=== PATIENT | female | born 1945 | race Caucasian/White ===

== ENCOUNTER 2017-04-19 20:38 | Emergency (ER) | payer MEDICARE, BC ==
[~2017-04-19] VITALS: Ht 157.5 cm; Wt 58.2 kg
[2017-04-19] MEDS ORDERED: famotidine 20mg tablet PO ONE (22:15)
[2017-04-19] MEDS ORDERED: LORazepam 2 mg/ml vial IM ONE (22:20)
[2017-04-19] MEDS ORDERED: diphenhydrAMINE 25mg capsule PO ONE (23:15)
[2017-04-19] MEDS ORDERED: LORazepam 1 MG tablet PO ONE (23:15)
[2017-04-19 23:29] LABS: BASOPHILS % (AUTO) 0 % (0-1); EOSINOPHILS # (AUTO) 0.1 X10'3 (0-0.9); EOSINOPHILS % (AUTO) 1.1 % (0-6); HEMATOCRIT 41.5 % (35.0-45.0); HEMOGLOBIN 14.8 g/dl (12.0-16.0); LYMPHOCYTES # (AUTO) 0.8 X10'3 (1.1-4.8); LYMPHOCYTES % (AUTO) 8.6 % (21-51); MEAN CORPUSCULAR HGB CONC 35.7 % (33.0-36.5); MEAN CORPUSCULAR VOLUME 86.7 FL (78-98); MEAN PLATELET VOLUME 8.7 FL (7.4-10.4); MONOCYTES # (AUTO) 0.5 X10'3 (0-0.9); MONOCYTES % (AUTO) 5.5 % (2-12); NEUTROPHILS # (AUTO) 8.4 X10'3 (1.8-7.7); NEUTROPHILS % (AUTO) 84.8 % (42-75); PLATELET COUNT 206 X10'3 (140-440); RED BLOOD COUNT 4.79 X10'6 (4.20-5.60); RED CELL DISTRIBUTION WIDTH 14.4 % (11.5-14.5); WHITE BLOOD COUNT 9.9 X10'3 (4.5-11.0)
[2017-04-20 00:05] LABS: ALANINE AMINOTRANSFERASE 36 U/L (12-78); ALBUMIN 3.7 G/DL (3.4-5.0); ALBUMIN/GLOBULIN RATIO 1.1 (1.1-1.5); ALKALINE PHOSPHATASE 77 IU/L (46-116); ANION GAP 12 (8-16); ASPARTATE AMINO TRANSFERASE 28 U/L (10-37); BILIRUBIN,TOTAL 0.6 MG/DL (0.1-1.0); BLOOD UREA NITROGEN 14 MG/DL (7-18); BUN/CREATININE RATIO 22.2 (6.6-38.0); CALCIUM 9.5 MG/DL (8.5-10.1); CHLORIDE 93 MMOL/L (99-107); CREATININE 0.63 MG/DL (0.40-0.90); GLUCOSE 122 MG/DL (70-104); POTASSIUM 3.1 MMOL/L (3.5-5.1); SODIUM 134 MMOL/L (135-145); TOTAL CARBON DIOXIDE 28.8 MMOL/L (24-32); TOTAL PROTEIN 7.2 G/DL (6.4-8.2); TROPONIN I < 0.04 NG/ML (0.0-0.05); eGFR > 90 ML/MIN
[2017-04-20 00:12] LABS: CLARITY,URINE CLEAR (Clear); COLOR,URINE YELLOW (Yellow); GLUCOSE, URINE NEGATIVE (Neg); KETONES,URINE >=80 mg/dl (Neg); LEUKOCYTE ESTERASE ,URINE NEGATIVE (Neg); NITRITES, URINE NEGATIVE (Neg); OCCULT BLOOD,URINE TRACE-INTACT (Neg); PROTEIN,URINE 30 mg/dl (Neg); UROBILINOGEN,URINE 0.2 E.U/dL (0.2-1.0)
[2017-04-20] MEDS ORDERED: ziprasidone 20mg capsule PO ONE (00:15)
[2017-04-20 00:26] LABS: UA COLLECTION TYPE CLN CATCH MIDSTREAM
[2017-04-20 00:27] LABS: BACTERIA,URINE NONE SEEN /HPF (Neg); RBC,URINE NONE SEEN /HPF (0-2); SQUAMOUS EPITHELIAL CELL,UR FEW /LPF (FEW); WBC,URINE 0-4 /HPF (0-4)
[2017-04-20 01:30] LABS: D-DIMER 0.34 MG/L FEU (0-0.50); PROTHROMBIN TIME 10.5 SECONDS (9.0-12.0)
[2017-04-20 02:04] VITALS: BP 115/63
[2017-04-20] MEDS ORDERED: LORA-269 PO (12:06)
== END 2017-04-20 02:09 | disposition home or self-care (01) ==
LOC: ER 20:39
DX: F41.9 Anxiety disorder, unspecified (principal); J44.9 Chronic obstructive pulmonary disease, unspecified
CPT/HCPCS: 36415; 80053; 81001; 83605; 83880; 84443; 84484; 85025; 85379; 85610; 96372; 99285; J2060; Q0163; 81003

== ENCOUNTER 2017-04-20 11:32 | Emergency (ER) | payer MEDICARE, BC ==
[~2017-04-20] VITALS: Ht 157.5 cm; Wt 58.2 kg
[2017-04-20 11:50] VITALS: BP 106/76
[2017-04-20] MEDS ORDERED: LORA-269 PO (12:06)
== END 2017-04-20 12:28 | disposition home or self-care (01) ==
LOC: ER 11:33
DX: F41.9 Anxiety disorder, unspecified (principal); G89.29 Other chronic pain; J44.9 Chronic obstructive pulmonary disease, unspecified; Z79.899 Other long term (current) drug therapy
CPT/HCPCS: 99284

== ENCOUNTER 2018-01-05 13:25 | Inpatient (IN) | payer MEDICARE, BC ==
[~2018-01-05] VITALS: Ht 157.5 cm; Wt 57.2 kg
[~2018-01-05 13:25] MED LIST: LORA-269 PO
[2018-01-05 14:13] LABS: BASOPHILS # (AUTO) 0.1 X10'3 (0-0.2); BASOPHILS % (AUTO) 0.6 % (0-1); EOSINOPHILS % (AUTO) 0 % (0-6); HEMATOCRIT 46.7 % (35.0-45.0); HEMOGLOBIN 15.4 g/dl (12.0-16.0); LYMPHOCYTES # (AUTO) 0.5 X10'3 (1.1-4.8); MEAN CORPUSCULAR HEMOGLOBIN 29.9 PG (27.0-31.0); MEAN CORPUSCULAR HGB CONC 32.9 % (33.0-36.5); MEAN CORPUSCULAR VOLUME 90.8 FL (78-98); MEAN PLATELET VOLUME 8.8 FL (7.4-10.4); MONOCYTES # (AUTO) 0.2 X10'3 (0-0.9); MONOCYTES % (AUTO) 1.7 % (2-12); NEUTROPHILS # (AUTO) 11.8 X10'3 (1.8-7.7); NEUTROPHILS % (AUTO) 93.7 % (42-75); PLATELET COUNT 287 X10'3 (140-440); RED BLOOD COUNT 5.15 X10'6 (4.20-5.60); RED CELL DISTRIBUTION WIDTH 14.6 % (11.5-14.5); WHITE BLOOD COUNT 12.6 X10'3 (4.5-11.0)
[2018-01-05 14:25] LABS: PARTIAL THROMBOPLASTIN TIME 30 SECONDS (22-32); PROTHROMBIN TIME 10.2 SECONDS (9.0-12.0)
[2018-01-05 14:27] LABS: ALANINE AMINOTRANSFERASE 39 U/L (12-78); ALBUMIN 3.6 G/DL (3.4-5.0); ALBUMIN/GLOBULIN RATIO 0.9 (1.1-1.5); ALKALINE PHOSPHATASE 72 IU/L (46-116); ANION GAP 4 (8-16); ASPARTATE AMINO TRANSFERASE 23 U/L (10-37); BILIRUBIN,TOTAL 0.4 MG/DL (0.1-1.0); BLOOD UREA NITROGEN 12 MG/DL (7-18); BUN/CREATININE RATIO 13.8 (6.6-38.0); CALCIUM 9.9 MG/DL (8.5-10.1); CHLORIDE 98 MMOL/L (99-107); CREATININE 0.87 MG/DL (0.40-0.90); GLUCOSE 155 MG/DL (70-104); POTASSIUM 3.3 MMOL/L (3.5-5.1); SODIUM 140 MMOL/L (135-145); TOTAL CARBON DIOXIDE 38.5 MMOL/L (24-32); TOTAL PROTEIN 7.5 G/DL (6.4-8.2); eGFR 64 ML/MIN
[2018-01-05 14:52] LABS: CLARITY,URINE SLIGHTLY CLOUDY (Clear); COLOR,URINE YELLOW (Yellow); GLUCOSE, URINE NEGATIVE (Neg); KETONES,URINE NEGATIVE (Neg); LEUKOCYTE ESTERASE ,URINE SMALL (Neg); NITRITES, URINE NEGATIVE (Neg); OCCULT BLOOD,URINE NEGATIVE (Neg); PH,URINE 7.5 (4.8-8.0); PROTEIN,URINE NEGATIVE (Neg); UA COLLECTION TYPE CLN CATCH MIDSTREAM; UROBILINOGEN,URINE 0.2 E.U/dL (0.2-1.0)
[2018-01-05] MEDS ORDERED: normal saline 1000ML IV soln IV ONE (15:00)
[2018-01-05 15:05] LABS: WBC,URINE 20-30 /HPF (0-4)
[2018-01-05 15:06] LABS: BACTERIA,URINE 3+ /HPF (Neg); MUCUS STRANDS FEW /LPF (Neg); RBC,URINE 0-2 /HPF (0-2); SQUAMOUS EPITHELIAL CELL,UR MANY /LPF (FEW)
[2018-01-05] MEDS ORDERED: ipratropium/albuterol 3ml nebule NEB ONE (15:40)
[2018-01-05] MEDS ORDERED: methylPREDNISolone sod succ 125mg/2ml vial IV ONE (15:40)
[2018-01-05 16:05] LABS: ETHANOL < 0.010 GM/DL (0.0-0.010)
[2018-01-05 16:51] LABS: ABG BASE EXCESS 8.8 mmol/L (-2.0-3.0); ABG HCO3 35.1 mmol/L (22.0-26.0); ABG OXYGEN SATURATION 97.7 % (95-98); ABG PCO2 (T) 53.9 mmHg (32.0-45.0); ABG PH (T) 7.431 (7.350-7.450); ABG PO2 (T) 101.2 mmHg (83-108); ALLEN'S TEST Positive; FCOHb 0.4 % (0.5-1.5); FLOW 2 L/min; FMetHb 0.2 % (0.3-1.12); FO2Hb 97.1 % (94-100); TOTAL HEMOGLOBIN 14.9 G/dl (12.0-16.0)
[2018-01-05] MEDS ORDERED: mag hydrox/Alum hydrox/simeth 30ml oral suspension PO PRN (17:45)
[2018-01-05] MEDS ORDERED: acetaminophen 325mg tablet PO PRN ×2 (17:45)
[2018-01-05] MEDS ORDERED: HYDROcodone/acetaminophen 10/325mg tab PO PRN (17:45)
[2018-01-05] MEDS ORDERED: morphine 2 MG/ML inj. syringe IV PRN ×2 (17:45)
[2018-01-05] MEDS ORDERED: ondansetron/PF 4mg/2ml inj IV PRN (17:45)
[2018-01-05] MEDS ORDERED: diphenhydrAMINE 25mg capsule PO PRN (17:45)
[2018-01-05] MEDS ORDERED: magnesium 1gm/100ml D5W IVPB 100 ML IV PRN (17:45)
[2018-01-05] MEDS ORDERED: magnesium hydroxide 30ml (MOM) UD suspension PO PRN (17:45)
[2018-01-05] MEDS ORDERED: HYDROcodone/acetaminophen 5mg/325mg tablet PO PRN (17:45)
[2018-01-05] MEDS ORDERED: magnesium Cl slow-release 64mg tablet PO PRN (17:45)
[2018-01-05] MEDS ORDERED: potassium Cl 20 mEq SR tablet PO PRN (17:45)
[2018-01-05] MEDS ORDERED: potassium Cl 40MEQ/NS 500ml 500 ML IV PRN ×2 (17:45)
[2018-01-05] MEDS: K and/or MAG REPLACEMENT MC SCH (17:45)
[2018-01-05] MEDS ORDERED: magnesium 4gm in 100ml NS 100 ML IV PRN (17:45)
[2018-01-05 17:46] LABS: URINE AMPHETAMINE SCREEN NEGATIVE (Neg); URINE BARBITUATE SCREEN NEGATIVE (Neg); URINE BENZODIAZEPINES SCREEN NEGATIVE (Neg); URINE CANNABINOID SCREEN NEGATIVE (Neg); URINE COCAINE SCREEN NEGATIVE (Neg); URINE METHADONE SCREEN NEGATIVE (Neg); URINE OPIATE SCREEN NEGATIVE (Neg); URINE PHENCYCLIDINE SCREEN NEGATIVE (Neg)
[2018-01-05] MEDS: normal saline 1000ml 1,000 ML IV SCH ×2 (18:19→19:07)
[2018-01-05] MEDS: ipratropium/albuterol 3ml nebule NEB SCH ×2 (19:18→23:03)
[2018-01-05] MEDS: piperacillin/tazo 3.375gm/50ml 50 ML IV SCH (19:31)
[2018-01-05 21:14] VITALS: BP 101/61
[2018-01-05 23:00] VITALS: BP 126/67
[2018-01-05] MEDS: temazepam 15mg capsule PO PRN (23:32)
[2018-01-05] MEDS: methylPREDNISolone sod succ 125mg/2ml vial IV SCH (23:34)
[2018-01-06 00:40] LABS: CLARITY,URINE CLEAR (Clear); COLOR,URINE YELLOW (Yellow); GLUCOSE, URINE NEGATIVE (Neg); KETONES,URINE NEGATIVE (Neg); LEUKOCYTE ESTERASE ,URINE NEGATIVE (Neg); NITRITES, URINE NEGATIVE (Neg); OCCULT BLOOD,URINE TRACE-LYSED (Neg); PH,URINE 5.5 (4.8-8.0); PROTEIN,URINE NEGATIVE (Neg); UROBILINOGEN,URINE 0.2 E.U/dL (0.2-1.0)
[2018-01-06 00:41] LABS: UA COLLECTION TYPE VOIDED
[2018-01-06] MEDS ORDERED: AZIT-63 PO (00:49)
[2018-01-06] MEDS ORDERED: TRIA1CAP6 PO (00:49)
[2018-01-06] MEDS ORDERED: LEVO500T2 PO (00:49)
[2018-01-06] MEDS ORDERED: IPRA4AER IH (00:49)
[2018-01-06] MEDS ORDERED: LORA1TAB PO (00:49)
[2018-01-06] MEDS ORDERED: ACET-1 PO (00:49)
[2018-01-06] MEDS ORDERED: POTA10TA19 PO (00:49)
[2018-01-06] MEDS ORDERED: LEVO25TA2 PO (00:49)
[2018-01-06] MEDS ORDERED: TIOT4MIS5 INH (00:49)
[2018-01-06] MEDS ORDERED: BUDE10.2 INH (00:49)
[2018-01-06 00:51] LABS: BACTERIA,URINE NONE SEEN /HPF (Neg); RBC,URINE NONE SEEN /HPF (0-2); SQUAMOUS EPITHELIAL CELL,UR MODERATE /LPF (FEW); WBC,URINE 0-4 /HPF (0-4)
[2018-01-06] MEDS ORDERED: THEO200T22 PO (02:14)
[2018-01-06] MEDS ORDERED: [UNRECOGNIZED DRUG - OTHER] PO (02:14)
[2018-01-06] MEDS: piperacillin/tazo 3.375gm/50ml 50 ML IV SCH ×4 (02:35→21:35)
[2018-01-06] MEDS: ipratropium/albuterol 3ml nebule NEB SCH ×5 (02:47→22:41)
[2018-01-06] MEDS ORDERED: LORazepam 1 MG tablet PO PRN (02:50)
[2018-01-06 05:58] LABS: BASOPHILS % (AUTO) 0 % (0-1); EOSINOPHILS # (AUTO) 0.2 X10'3 (0-0.9); EOSINOPHILS % (AUTO) 1.5 % (0-6); HEMATOCRIT 37.9 % (35.0-45.0); HEMOGLOBIN 12.7 g/dl (12.0-16.0); LYMPHOCYTES # (AUTO) 0.3 X10'3 (1.1-4.8); LYMPHOCYTES % (AUTO) 2.7 % (21-51); MEAN CORPUSCULAR HEMOGLOBIN 30.4 PG (27.0-31.0); MEAN CORPUSCULAR HGB CONC 33.5 % (33.0-36.5); MEAN CORPUSCULAR VOLUME 90.7 FL (78-98); MONOCYTES # (AUTO) 0.1 X10'3 (0-0.9); NEUTROPHILS # (AUTO) 9.9 X10'3 (1.8-7.7); NEUTROPHILS % (AUTO) 94.8 % (42-75); PLATELET COUNT 235 X10'3 (140-440); RED BLOOD COUNT 4.18 X10'6 (4.20-5.60); RED CELL DISTRIBUTION WIDTH 14.1 % (11.5-14.5); WHITE BLOOD COUNT 10.4 X10'3 (4.5-11.0)
[2018-01-06 07:20] LABS: ALANINE AMINOTRANSFERASE 29 U/L (12-78); ALBUMIN 2.8 G/DL (3.4-5.0); ALBUMIN/GLOBULIN RATIO 0.9 (1.1-1.5); ALKALINE PHOSPHATASE 55 IU/L (46-116); ANION GAP 9 (8-16); ASPARTATE AMINO TRANSFERASE 19 U/L (10-37); BILIRUBIN,TOTAL 0.3 MG/DL (0.1-1.0); BLOOD UREA NITROGEN 12 MG/DL (7-18); BUN/CREATININE RATIO 14.3 (6.6-38.0); CALCIUM 8.6 MG/DL (8.5-10.1); CHLORIDE 99 MMOL/L (99-107); CHOL/HDL RATIO 2.4 (0.00-4.99); CHOLESTEROL 178 MG/DL (0-200); CREATININE 0.84 MG/DL (0.40-0.90); GLUCOSE 162 MG/DL (70-104); HDL CHOLESTEROL 73 MG/DL (35-60); LDL CHOLESTEROL 93 MG/DL (50-100); MAGNESIUM 1.8 MG/DL (1.5-2.4); PHOSPHORUS 3.3 MG/DL (2.3-4.5); SODIUM 142 MMOL/L (135-145); TOTAL CARBON DIOXIDE 33.6 MMOL/L (24-32); TOTAL PROTEIN 5.9 G/DL (6.4-8.2); TRIGLYCERIDES 24 MG/DL (20-135); eGFR 67 ML/MIN
[2018-01-06 07:25] VITALS: BP 104/42
[2018-01-06] MEDS: K and/or MAG REPLACEMENT MC SCH (08:00)
[2018-01-06] MEDS: levoTHYROXINE 25mcg tablet PO SCH (09:27)
[2018-01-06] MEDS: potassium Cl 20 mEq SR tablet PO PRN ×3 (09:27→17:09)
[2018-01-06] MEDS: enoxaparin 40mg/0.4ml syringe SUBCUT SCH (09:29)
[2018-01-06] MEDS: methylPREDNISolone sod succ 125mg/2ml vial IV SCH ×2 (09:30→16:01)
[2018-01-06] MEDS: normal saline 1000ml 1,000 ML IV SCH (09:39)
[2018-01-06 13:19] VITALS: BP 111/47
[2018-01-06 14:36] LABS: D-DIMER 0.28 MG/L FEU (0-0.50)
[2018-01-06] MEDS ORDERED: albuterol 2.5 MG/3 ML nebule NEB SCH (15:00)
[2018-01-06] MEDS ORDERED: ipratropium 0.5 MG/2.5ML nebule IH SCH (15:00)
[2018-01-06 19:00] VITALS: BP 114/48
[2018-01-06] MEDS ORDERED: non-formulary drug (Budesonide/Formoterol Fumarate (Symbicort 160-4.5 Mcg Inhaler) 2 PUFFS INH SCH (20:00)
[2018-01-06] MEDS: lactobacillus rhamnosus 10,000 MMU CELLS/CAPSULE PO SCH (21:35)
[2018-01-06] MEDS: budesonide 0.5mg/2ml UD nebule IH SCH (22:40)
[2018-01-07] VITALS: BP 118/66
[2018-01-07] MEDS: temazepam 15mg capsule PO PRN (00:01)
[2018-01-07] MEDS: methylPREDNISolone sod succ 125mg/2ml vial IV SCH ×2 (00:05→07:39)
[2018-01-07] MEDS: ipratropium/albuterol 3ml nebule NEB SCH ×2 (03:02→07:52)
[2018-01-07] MEDS: piperacillin/tazo 3.375gm/50ml 50 ML IV SCH ×2 (03:29→07:41)
[2018-01-07 05:59] LABS: BASOPHILS % (AUTO) 0 % (0-1); EOSINOPHILS # (AUTO) 0.2 X10'3 (0-0.9); EOSINOPHILS % (AUTO) 1.3 % (0-6); HEMATOCRIT 37.8 % (35.0-45.0); HEMOGLOBIN 12.4 g/dl (12.0-16.0); LYMPHOCYTES # (AUTO) 0.3 X10'3 (1.1-4.8); LYMPHOCYTES % (AUTO) 1.8 % (21-51); MEAN CORPUSCULAR HGB CONC 32.8 % (33.0-36.5); MEAN CORPUSCULAR VOLUME 91.5 FL (78-98); MEAN PLATELET VOLUME 8.9 FL (7.4-10.4); MONOCYTES # (AUTO) 0.3 X10'3 (0-0.9); NEUTROPHILS # (AUTO) 14.1 X10'3 (1.8-7.7); NEUTROPHILS % (AUTO) 94.9 % (42-75); PLATELET COUNT 232 X10'3 (140-440); RED BLOOD COUNT 4.13 X10'6 (4.20-5.60); RED CELL DISTRIBUTION WIDTH 14.4 % (11.5-14.5); WHITE BLOOD COUNT 14.8 X10'3 (4.5-11.0)
[2018-01-07 06:22] LABS: ALANINE AMINOTRANSFERASE 28 U/L (12-78); ALBUMIN 2.7 G/DL (3.4-5.0); ALBUMIN/GLOBULIN RATIO 0.9 (1.1-1.5); ALKALINE PHOSPHATASE 50 IU/L (46-116); ANION GAP 5 (8-16); ASPARTATE AMINO TRANSFERASE 19 U/L (10-37); BILIRUBIN,TOTAL 0.2 MG/DL (0.1-1.0); BLOOD UREA NITROGEN 13 MG/DL (7-18); BUN/CREATININE RATIO 14.4 (6.6-38.0); CALCIUM 8.5 MG/DL (8.5-10.1); CHLORIDE 102 MMOL/L (99-107); GLUCOSE 157 MG/DL (70-104); PHOSPHORUS 3.1 MG/DL (2.3-4.5); POTASSIUM 4.3 MMOL/L (3.5-5.1); SODIUM 141 MMOL/L (135-145); TOTAL CARBON DIOXIDE 33.9 MMOL/L (24-32); TOTAL PROTEIN 5.7 G/DL (6.4-8.2); eGFR 62 ML/MIN
[2018-01-07 07:00] VITALS: BP 108/58
[2018-01-07] MEDS: lactobacillus rhamnosus 10,000 MMU CELLS/CAPSULE PO SCH (07:39)
[2018-01-07] MEDS: levoTHYROXINE 25mcg tablet PO SCH (07:39)
[2018-01-07] MEDS: enoxaparin 40mg/0.4ml syringe SUBCUT SCH (07:40)
[2018-01-07] MEDS: budesonide 0.5mg/2ml UD nebule IH SCH (07:52)
[2018-01-07] MEDS: K and/or MAG REPLACEMENT MC SCH (08:00)
[2018-01-07] MEDS ORDERED: non-formulary drug (Tiotropium Bromide (Spiriva Respimat) 2 PUFF) INH SCH (08:00)
[2018-01-07 11:00] VITALS: BP 130/75
[2018-01-07] MEDS ORDERED: AMOX-419 PO (13:17)
[2018-01-07] MEDS ORDERED: PRED10TA23 PO (13:17)
[2018-01-07] MEDS ORDERED: LACT1CAP26 PO (13:17)
== END 2018-01-07 14:13 | disposition home or self-care (01) | DRG 189 ==
LOC: ER 13:25 → ED HOLD 17:44 → SUR 3N 21:30 → CMPBEDREQ 21:49
PROVIDERS: ADMIT Family Medicine; ATTEND Family Medicine
DX: J96.21 Acute and chronic respiratory failure with hypoxia (principal); J44.1 Chronic obstructive pulmonary disease with (acute) exacerbation; E87.2 Acidosis; E86.0 Dehydration; E87.6 Hypokalemia; F41.9 Anxiety disorder, unspecified; G89.4 Chronic pain syndrome; R19.7 Diarrhea, unspecified; R73.9 Hyperglycemia, unspecified; T38.0X5A Adverse effect of glucocorticoids and synthetic analogues, initial encounter; Z99.81 Dependence on supplemental oxygen; Z98.49 Cataract extraction status, unspecified eye; Z87.891 Personal history of nicotine dependence; Z80.1 Family history of malignant neoplasm of trachea, bronchus and lung; Z82.3 Family history of stroke; Z82.49 Family history of ischemic heart disease and other diseases of the circulatory system
CPT/HCPCS: 36415; 36600; 70450; 71046; 71250; 80053; 80061; 80305; 80320; 81001; 82803; 83036; 83605; 83735; 84100; 84132; 84145; 84484; 85018; 85025; 85379; 85610; 85730; 87040; 87070; 87088; 87502; 87503; 93005; 93306; 94640; 94760; 96361; 96374; 97110; 97116; 97161; 99285; G0378; J1650; J2543; J2930; J7030; J7626

== ENCOUNTER 2018-02-22 23:48 | Inpatient (IN) | payer MEDICARE, BC ==
[~2018-02-22] VITALS: Ht 162.6 cm; Wt 72.4 kg
[~2018-02-22 23:48] MED LIST changes: +ACET-1 PO; +BUDE10.2 INH; +IPRA4AER IH; +LACT1CAP26 PO; +LEVO25TA2 PO; -LORA-269 PO; +LORA1TAB PO; +POTA10TA19 PO; +THEO200T22 PO; +TIOT4MIS5 INH; +TRIA1CAP6 PO; +[UNRECOGNIZED DRUG - OTHER] PO; +etomidate 2mg/ml inj. ONE
[2018-02-22] MEDS ORDERED: levoFLOXACIN-Levaquin 750MG/D5 150 ML IV STA (23:56)
[2018-02-23] MEDS ORDERED: ipratropium/albuterol 3ml nebule NEB ONE
[2018-02-23] MEDS ORDERED: methylPREDNISolone sod succ 125mg/2ml vial IV ONE
[2018-02-23 00:26] LABS: ABG BASE EXCESS 8.1 mmol/L (-2.0-3.0); ABG HCO3 37.6 mmol/L (22.0-26.0); ABG OXYGEN SATURATION 95.4 % (95-98); ABG PCO2 (T) 75.2 mmHg (32.0-45.0); ABG PH (T) 7.317 (7.350-7.450); ABG PO2 (T) 85.3 mmHg (83-108); ALLEN'S TEST Positive; FCOHb 1.2 % (0.5-1.5); FLOW 4 L/min; FMetHb 0.2 % (0.3-1.12); FO2Hb 94.1 % (94-100); PATIENT TEMPERATURE 37.1; RESPIRATORY RATE (OBSERVED) 20 b/min; TOTAL HEMOGLOBIN 15.4 G/dl (12.0-16.0)
[2018-02-23] MEDS ORDERED: LORazepam 2 mg/ml vial IV ONE (00:35)
[2018-02-23 00:44] LABS: BASOPHILS % (AUTO) 0.3 % (0-1); EOSINOPHILS % (AUTO) 0.2 % (0-6); HEMATOCRIT 47.5 % (35.0-45.0); HEMOGLOBIN 15.6 g/dl (12.0-16.0); LYMPHOCYTES # (AUTO) 0.6 X10'3 (1.1-4.8); LYMPHOCYTES % (AUTO) 3.8 % (21-51); MEAN CORPUSCULAR HEMOGLOBIN 29.9 PG (27.0-31.0); MEAN CORPUSCULAR HGB CONC 32.9 % (33.0-36.5); MEAN CORPUSCULAR VOLUME 90.9 FL (78-98); MEAN PLATELET VOLUME 9.9 FL (7.4-10.4); MONOCYTES # (AUTO) 0.9 X10'3 (0-0.9); NEUTROPHILS # (AUTO) 13.4 X10'3 (1.8-7.7); NEUTROPHILS % (AUTO) 89.7 % (42-75); PLATELET COUNT 222 X10'3 (140-440); RED BLOOD COUNT 5.22 X10'6 (4.20-5.60); RED CELL DISTRIBUTION WIDTH 14.4 % (11.5-14.5); WHITE BLOOD COUNT 14.9 X10'3 (4.5-11.0)
[2018-02-23 00:49] LABS: ALANINE AMINOTRANSFERASE 37 U/L (12-78); ALBUMIN 3.5 G/DL (3.4-5.0); ALBUMIN/GLOBULIN RATIO 0.8 (1.1-1.5); ALKALINE PHOSPHATASE 66 IU/L (46-116); ANION GAP 8 (8-16); ASPARTATE AMINO TRANSFERASE 41 U/L (10-37); BILIRUBIN,TOTAL 0.4 MG/DL (0.1-1.0); BLOOD UREA NITROGEN 12 MG/DL (7-18); BUN/CREATININE RATIO 14.8 (6.6-38.0); CALCIUM 9.3 MG/DL (8.5-10.1); CHLORIDE 88 MMOL/L (99-107); CREATININE 0.81 MG/DL (0.40-0.90); GLUCOSE 122 MG/DL (70-104); SODIUM 133 MMOL/L (135-145); TOTAL CARBON DIOXIDE 36.9 MMOL/L (24-32); TOTAL PROTEIN 7.8 G/DL (6.4-8.2); eGFR 70 ML/MIN
[2018-02-23 01:00] LABS: PARTIAL THROMBOPLASTIN TIME 34 SECONDS (22-32); POTASSIUM 3.1 MMOL/L (3.5-5.1); PROTHROMBIN TIME 10.3 SECONDS (9.0-12.0)
[2018-02-23] MEDS ORDERED: normal saline 1000ML IV soln IVB ONE ×2 (01:00)
[2018-02-23 01:23] LABS: TOTAL CELLS COUNTED 100
[2018-02-23 01:24] LABS: PLATELET ESTIMATE NORMAL; TOXIC VACUOLATION 1+
[2018-02-23] MEDS ORDERED: aspirin 81mg tab.chew PO ONE (01:45)
[2018-02-23] MEDS: potassium 10mEq/100ml NS w/LIDOcaine (10mg/bag) IV SCH ×2 (02:20→04:55)
[2018-02-23 02:41] LABS: ABG BASE EXCESS 6.3 mmol/L (-2.0-3.0); ABG OXYGEN SATURATION 96.4 % (95-98); ABG PCO2 (T) 71.5 mmHg (32.0-45.0); ABG PH (T) 7.309 (7.350-7.450); ABG PO2 (T) 93.5 mmHg (83-108); ALLEN'S TEST Positive; FCOHb 0.4 % (0.5-1.5); FMetHb 0.2 % (0.3-1.12); FO2Hb 95.8 % (94-100); MINUTE VOLUME 17 L/min; PATIENT TEMPERATURE 37.4; RESPIRATORY RATE 20 b/min; RESPIRATORY RATE (OBSERVED) 22 b/min
--- NOTE | 2018-02-23 02:45 | NUR ---
Pt is more relaxed, is having an easier time with breathing. Her anxiety has seemed to subside and she is trying to rest. Spouse at BS.
[2018-02-23] MEDS ORDERED: acetaminophen 325mg tablet PO PRN (03:05)
[2018-02-23] MEDS ORDERED: ondansetron/PF 4mg/2ml inj IV PRN (03:05)
[2018-02-23] MEDS ORDERED: normal saline 1000ml 1,000 ML IV SCH (03:05)
[2018-02-23] MEDS ORDERED: mag hydrox/Alum hydrox/simeth 30ml oral suspension PO PRN (03:05)
[2018-02-23] MEDS ORDERED: heparin 10,000 units/1 ML INJ IV PRN (03:35)
[2018-02-23] MEDS ORDERED: heparin 10,000 units/1 ML INJ IV ONE (03:35)
[2018-02-23 04:22] LABS: INR 1.1 INR
[2018-02-23] MEDS: albuterol 2.5 MG/3 ML nebule NEB SCH ×2 (04:40→07:29)
[2018-02-23] MEDS: heparin 25,000 UNIT/250ml bag 250 ML IV SCH ×3 (05:05→19:35)
[2018-02-23 05:12] VITALS: BP 134/70
[2018-02-23] MEDS: LORazepam 1 MG tablet PO PRN ×2 (05:44→15:39)
[2018-02-23 06:00] VITALS: BP 158/94
[2018-02-23 06:16] LABS: ABG BASE EXCESS 6.7 mmol/L (-2.0-3.0); ABG HCO3 36.9 mmol/L (22.0-26.0); ABG OXYGEN SATURATION 96.2 % (95-98); ABG PCO2 (T) 78.9 mmHg (32.0-45.0); ABG PH (T) 7.286 (7.350-7.450); ALLEN'S TEST Positive; FCOHb 0.5 % (0.5-1.5); FMetHb 0.3 % (0.3-1.12); FO2Hb 95.4 % (94-100); MINUTE VOLUME 7 L/min; PATIENT TEMPERATURE 36.6; RESPIRATORY RATE 20 b/min; RESPIRATORY RATE (OBSERVED) 23 b/min; TOTAL HEMOGLOBIN 15.2 G/dl (12.0-16.0)
--- NOTE | 2018-02-23 06:17 | NUR ---
Problems reprioritized. Patient report given, questions answered & plan of care reviewed with LUIS ARMANDO Guillaume.
--- NOTE | 2018-02-23 06:42 | NUR ---
Patient in room PCU 3021. I have received report from Amee DURÁN and had the opportunity to ask questions and assume patient care. Bedside report complete, will continue to monitor patient.
[2018-02-23 07:14] LABS: BASOPHILS % (AUTO) 0 % (0-1); EOSINOPHILS % (AUTO) 0 % (0-6); HEMATOCRIT 43.7 % (35.0-45.0); HEMOGLOBIN 14.7 g/dl (12.0-16.0); LYMPHOCYTES # (AUTO) 0.3 X10'3 (1.1-4.8); LYMPHOCYTES % (AUTO) 2.1 % (21-51); MEAN CORPUSCULAR HEMOGLOBIN 30.6 PG (27.0-31.0); MEAN CORPUSCULAR HGB CONC 33.6 % (33.0-36.5); MEAN CORPUSCULAR VOLUME 91.1 FL (78-98); MEAN PLATELET VOLUME 9.3 FL (7.4-10.4); MONOCYTES # (AUTO) 0.3 X10'3 (0-0.9); MONOCYTES % (AUTO) 2.3 % (2-12); NEUTROPHILS # (AUTO) 12.8 X10'3 (1.8-7.7); NEUTROPHILS % (AUTO) 95.6 % (42-75); PLATELET COUNT 179 X10'3 (140-440); RED BLOOD COUNT 4.79 X10'6 (4.20-5.60); RED CELL DISTRIBUTION WIDTH 15.2 % (11.5-14.5); WHITE BLOOD COUNT 13.4 X10'3 (4.5-11.0)
[2018-02-23] MEDS: CefTRIAXone/D5W-Rocephin 1gm 50 ML IV SCH (07:57)
[2018-02-23] MEDS: methylPREDNISolone sod succ/PF 40mg inj. IV SCH ×2 (07:57→15:39)
[2018-02-23] MEDS: lactobacillus rhamnosus 10,000 MMU CELLS/CAPSULE PO SCH ×2 (07:58→20:52)
[2018-02-23] MEDS: azithromycin 250mg tablet PO SCH (07:58)
[2018-02-23] MEDS: potassium chloride 10mEq ER tablet PO SCH (07:58)
[2018-02-23] MEDS: levoTHYROXINE 25mcg tablet PO SCH (07:58)
[2018-02-23] MEDS: acetaminophen w/codeine (30MG) #3 tablet PO SCH ×4 (08:00→20:52)
[2018-02-23] MEDS ORDERED: theophylline anhydrous 100mg SR-12hr tablet PO SCH (08:00)
[2018-02-23] MEDS ORDERED: heparin, porcine 5000 units/ml vial SQ SCH (08:00)
[2018-02-23] MEDS ORDERED: ipratropium 0.5 MG/2.5ML nebule NEB SCH ×2 (08:00→11:00)
--- NOTE | 2018-02-23 09:15 | NUR ---
Sent page to Dr. Macdonald: PAGER ID: [phone] MESSAGE: [id number] Pan: Patient is trying to take off Bipap and requesting Ativan. Last 2 mg dose was given 3 hours ago, its available Q 6 hours, please advise. Thanks, Camille [phone] Addendum: 02/23/18 at 0936 by Camille Monique RN Orders for restraints obtained, no changes to meds at this time
--- NOTE | 2018-02-23 09:36 | NUR ---
During 0800 medication pass, patient stated she did not want her tylenol with codeine that she takes at home. At 0915, patient requested ativan to allow the bipap to work better, which wasn't available for 3 more hours. Patient requesting the tylenol with codeine at this time. Will continue to monitor patient.
[2018-02-23 10:40] LABS: ABG BASE EXCESS 4.9 mmol/L (-2.0-3.0); ABG HCO3 30.7 mmol/L (22.0-26.0); ABG OXYGEN SATURATION 98.3 % (95-98); ABG PCO2 (T) 49.7 mmHg (32.0-45.0); ABG PH (T) 7.408 (7.350-7.450); ABG PO2 (T) 111.1 mmHg (83-108); ALLEN'S TEST Positive; FCOHb 0.9 % (0.5-1.5); FMetHb 0.3 % (0.3-1.12); FO2Hb 97.1 % (94-100); MINUTE VOLUME 12 L/min; RESPIRATORY RATE 24 b/min; RESPIRATORY RATE (OBSERVED) 27 b/min; TOTAL HEMOGLOBIN 14.3 G/dl (12.0-16.0)
[2018-02-23 11:00] VITALS: BP 131/80
[2018-02-23] MEDS: triamterene/HCTZ 37.5/25mg tablet PO SCH (11:36)
[2018-02-23] MEDS: theophylline anhydrous 100mg ER capsule 24-hour PO SCH (11:37)
[2018-02-23] MEDS: ipratropium/albuterol 3ml nebule IH SCH ×4 (11:43→23:19)
[2018-02-23 15:00] VITALS: BP 129/80
--- NOTE | 2018-02-23 18:17 | NUR ---
Patient in room PCU 3024. I have received report from LUIS ARMANDO Guillaume and had the opportunity to ask questions and assume patient care.
--- NOTE | 2018-02-23 18:32 | NUR ---
Problems reprioritized. Patient report given, questions answered & plan of care reviewed with Amee DURÁN. Patient stable at transfer of care.
--- NOTE | 2018-02-23 18:33 | NUR ---
Orientee documentation: I have reviewed and agree with all interventions, assessments performed and documented by Keisha DURÁN. [place] Medication Administration: For this medication-pass time frame, all medication were reviewed, dispensed, administered and documented per hospital policy by Keisha DURÁN
[2018-02-23 19:00] VITALS: BP 125/70
--- NOTE | 2018-02-23 19:41 | NUR ---
ptt 74, decreased rate to 900 units
[2018-02-23 23:00] VITALS: BP 127/58
[2018-02-24] VITALS (11 sets, daily range): BP systolic 74–186; BP diastolic 58–101
[2018-02-24] MEDS: methylPREDNISolone sod succ/PF 40mg inj. IV SCH ×4 (00:24→20:23)
[2018-02-24] MEDS: LORazepam 1 MG tablet PO PRN (00:25)
--- NOTE | 2018-02-24 01:49 | NUR ---
called logan for bp 186/101, order for 1 inch nitro paste now
[2018-02-24] MEDS ORDERED: nitroGLYCERIN 1gm ointment UD TP ONE (01:50)
[2018-02-24 02:02] LABS: BASOPHILS % (AUTO) 0.2 % (0-1); EOSINOPHILS % (AUTO) 0 % (0-6); HEMATOCRIT 45.4 % (35.0-45.0); HEMOGLOBIN 15.1 g/dl (12.0-16.0); LYMPHOCYTES # (AUTO) 0.4 X10'3 (1.1-4.8); LYMPHOCYTES % (AUTO) 2.9 % (21-51); MEAN CORPUSCULAR HGB CONC 33.3 % (33.0-36.5); MEAN CORPUSCULAR VOLUME 90.2 FL (78-98); MONOCYTES # (AUTO) 0.7 X10'3 (0-0.9); NEUTROPHILS # (AUTO) 13.7 X10'3 (1.8-7.7); NEUTROPHILS % (AUTO) 91.9 % (42-75); PLATELET COUNT 216 X10'3 (140-440); RED BLOOD COUNT 5.03 X10'6 (4.20-5.60); RED CELL DISTRIBUTION WIDTH 13.9 % (11.5-14.5); WHITE BLOOD COUNT 14.8 X10'3 (4.5-11.0)
[2018-02-24 02:11] LABS: ALANINE AMINOTRANSFERASE 45 U/L (12-78); ALBUMIN 3.4 G/DL (3.4-5.0); ALBUMIN/GLOBULIN RATIO 0.8 (1.1-1.5); ALKALINE PHOSPHATASE 58 IU/L (46-116); ANION GAP 5 (8-16); ASPARTATE AMINO TRANSFERASE 63 U/L (10-37); BILIRUBIN,TOTAL 0.3 MG/DL (0.1-1.0); BLOOD UREA NITROGEN 10 MG/DL (7-18); BUN/CREATININE RATIO 12.3 (6.6-38.0); CHLORIDE 89 MMOL/L (99-107); CREATININE 0.81 MG/DL (0.40-0.90); GLUCOSE 151 MG/DL (70-104); POTASSIUM 3.5 MMOL/L (3.5-5.1); SODIUM 133 MMOL/L (135-145); TOTAL CARBON DIOXIDE 39.5 MMOL/L (24-32); TOTAL PROTEIN 7.9 G/DL (6.4-8.2); eGFR 70 ML/MIN
[2018-02-24] MEDS: ipratropium/albuterol 3ml nebule IH SCH ×5 (03:23→23:04)
[2018-02-24] MEDS: heparin 25,000 UNIT/250ml bag 250 ML IV SCH (03:31)
--- NOTE | 2018-02-24 03:32 | NUR ---
HELP HEPARIN FOR 60 MINS, 82 PTT, RESTART AT 700 PER PROTOCOL. CURRENT EMELINA 136/58, RESTING COMFORTABLY ON BIPAP
--- NOTE | 2018-02-24 06:23 | NUR ---
Problems reprioritized. Patient report given, questions answered & plan of care reviewed with LUIS ARMANDO Guillaume.
--- NOTE | 2018-02-24 06:36 | NUR ---
Patient in room PCU 3021. I have received report from Amee DURÁN and had the opportunity to ask questions and assume patient care. Will continue to monitor.
[2018-02-24] MEDS: acetaminophen w/codeine (30MG) #3 tablet PO SCH ×3 (08:00→20:23)
[2018-02-24] MEDS: levoTHYROXINE 25mcg tablet PO SCH (08:00)
[2018-02-24] MEDS: lactobacillus rhamnosus 10,000 MMU CELLS/CAPSULE PO SCH ×2 (08:00→20:23)
[2018-02-24] MEDS: theophylline anhydrous 100mg ER capsule 24-hour PO SCH (08:00)
[2018-02-24] MEDS: triamterene/HCTZ 37.5/25mg tablet PO SCH (08:00)
[2018-02-24] MEDS: potassium chloride 10mEq ER tablet PO SCH (08:00)
[2018-02-24] MEDS: azithromycin 250mg tablet PO SCH (08:00)
[2018-02-24 08:05] LABS: ABG BASE EXCESS 13.5 mmol/L (-2.0-3.0); ABG HCO3 45.6 mmol/L (22.0-26.0); ABG OXYGEN SATURATION 96.8 % (95-98); ABG PCO2 (T) 98.8 mmHg (32.0-45.0); ABG PH (T) 7.282 (7.350-7.450); ABG PO2 (T) 92.3 mmHg (83-108); ALLEN'S TEST Positive; FCOHb 0.5 % (0.5-1.5); FMetHb 0.4 % (0.3-1.12); FO2Hb 95.9 % (94-100); RESPIRATORY RATE (OBSERVED) 28 b/min; TOTAL HEMOGLOBIN 15.6 G/dl (12.0-16.0)
[2018-02-24] MEDS: furosemide 20 MG/2 ML vial IV SCH ×2 (08:33→20:00)
[2018-02-24] MEDS: CefTRIAXone/D5W-Rocephin 1gm 50 ML IV SCH (08:34)
[2018-02-24 09:25] LABS: ABG BASE EXCESS 13.4 mmol/L (-2.0-3.0); ABG HCO3 44.4 mmol/L (22.0-26.0); ABG OXYGEN SATURATION 95.8 % (95-98); ABG PCO2 (T) 88.9 mmHg (32.0-45.0); ABG PH (T) 7.316 (7.350-7.450); ABG PO2 (T) 82.2 mmHg (83-108); ALLEN'S TEST Positive; FCOHb 0.3 % (0.5-1.5); FMetHb 0.3 % (0.3-1.12); FO2Hb 95.2 % (94-100); RESPIRATORY RATE (OBSERVED) 27 b/min; TOTAL HEMOGLOBIN 15.5 G/dl (12.0-16.0)
[2018-02-24 14:50] LABS: ABG BASE EXCESS 16.6 mmol/L (-2.0-3.0); ABG HCO3 47.4 mmol/L (22.0-26.0); ABG OXYGEN SATURATION 96.6 % (95-98); ABG PCO2 (T) 87.8 mmHg (32.0-45.0); ABG PO2 (T) 84.9 mmHg (83-108); ALLEN'S TEST Positive; FCOHb 0.9 % (0.5-1.5); FMetHb 0.3 % (0.3-1.12); FO2Hb 95.4 % (94-100); MINUTE VOLUME 13 L/min; RESPIRATORY RATE 24 b/min; RESPIRATORY RATE (OBSERVED) 28 b/min; TIDAL VOLUME 483 mL; TOTAL HEMOGLOBIN 15.3 G/dl (12.0-16.0)
--- NOTE | 2018-02-24 15:45 | NUR ---
Called report to Gerardo DURÁN in the ICU. Will transfer patient when RT arrives.
--- NOTE | 2018-02-24 16:20 | NUR ---
Transferred patient to ICU accompanied by RT, patient belongings placed in new room, patient safely transferred to the ICU bed.
--- NOTE | 2018-02-24 17:00 | NUR ---
Pt arrived to floor via hospital bed and transferred to bed with BiPap. Pt alert and oriented and talking; however, very labored in breathing. 2 RN skin check performed with Erlinda RN with no significant findings; prophylactic foam dressing applied.
--- NOTE | 2018-02-24 17:30 | NUR ---
Patient's SBP in the 160-180s; Dr. Aguirre notified with no new orders. Will check an ABG to determine need for BiPap vs Intubation
[2018-02-24 17:46] LABS: ABG BASE EXCESS 16.9 mmol/L (-2.0-3.0); ABG HCO3 51.4 mmol/L (22.0-26.0); ABG OXYGEN SATURATION 95.2 % (95-98); ABG PCO2 (T) 121.6 mmHg (32.0-45.0); ABG PH (T) 7.244 (7.350-7.450); ABG PO2 (T) 79.5 mmHg (83-108); ALLEN'S TEST Positive; FCOHb 1.1 % (0.5-1.5); FMetHb 0.4 % (0.3-1.12); FO2Hb 93.8 % (94-100); MINUTE VOLUME 7 L/min; RESPIRATORY RATE (OBSERVED) 28 b/min; TIDAL VOLUME 248 mL; TOTAL HEMOGLOBIN 16.2 G/dl (12.0-16.0)
[2018-02-24] MEDS ORDERED: fentaNYL/PF 50MCG/1 ML 2ML syringe IV PRN (17:50)
[2018-02-24] MEDS ORDERED: midazolam 100mg in NS 100ml 100 ML IV PRN (17:50)
[2018-02-24] MEDS ORDERED: midazolam 2 mg/2 ml injection IV ONE (17:50)
[2018-02-24] MEDS ORDERED: ipratropium/albuterol 3ml nebule NEB PRN (17:50)
[2018-02-24] MEDS ORDERED: etomidate 2mg/ml inj. IV ONE (17:50)
[2018-02-24] MEDS: FENTANYL-0.9 % NACL/PF 100 ML IV PRN (18:21)
--- NOTE | 2018-02-24 18:30 | NUR ---
Patient in room CICU 2006. I have received report from LUIS ARMANDO Carrillo and had the opportunity to ask questions and assume patient care. Patient just intubated, I will need to drop the OG and put in the Lawrence. Patient's monitor having hard time reading BP, manual SBP <70 and FERNIE Chavis advised. Per Agusto give 500mL NS bolus, Dr. Aguirre came to bedside and advised me to infuse 1000mL instead. I will continue to monitor.
--- NOTE | 2018-02-24 18:51 | NUR ---
Patient intubated at 1800 and tolerated procedure well. 20 of etomidate administered and 2mg IV versed. Report given to Angelica DURÁN with all questions answered.
[2018-02-24 19:00] LABS: ABG BASE EXCESS 16.6 mmol/L (-2.0-3.0); ABG HCO3 48.1 mmol/L (22.0-26.0); ABG OXYGEN SATURATION 98.6 % (95-98); ABG PCO2 (T) 89.5 mmHg (32.0-45.0); ABG PH (T) 7.346 (7.350-7.450); ABG PO2 (T) 131.3 mmHg (83-108); ALLEN'S TEST Positive; FCOHb 0.5 % (0.5-1.5); FMetHb 0.3 % (0.3-1.12); FO2Hb 97.8 % (94-100); PATIENT TEMPERATURE 36.7; PEEP 5 cm H2O; RESPIRATORY RATE 20 b/min; RESPIRATORY RATE (OBSERVED) 20 b/min; TOTAL HEMOGLOBIN 16.1 G/dl (12.0-16.0)
[2018-02-24] MEDS: ipratropium/albuterol 3ml nebule NEB SCH ×2 (19:12→23:04)
[2018-02-24] MEDS: normal saline 1000ml 1,000 ML IV SCH ×2 (19:24→21:37)
[2018-02-25] VITALS (23 sets, daily range): BP systolic 64–119; BP diastolic 56–80
[2018-02-25] MEDS: methylPREDNISolone sod succ/PF 40mg inj. IV SCH ×4 (02:15→20:19)
[2018-02-25] MEDS ORDERED: albumin (Human) 5% 250ml 250 ML IV ONE ×2 (02:25→02:35)
--- NOTE | 2018-02-25 02:29 | NUR ---
FERNIE Chavis on the unit and I had him eval the patient as her urine output had decreased and her BP is low as well 75/64. Agusto examined the patient and advised me to order albumin 5% 500mL.
[2018-02-25] MEDS: ipratropium/albuterol 3ml nebule NEB SCH ×6 (02:57→23:26)
[2018-02-25 03:05] LABS: ABG BASE EXCESS 5.2 mmol/L (-2.0-3.0); ABG HCO3 30.9 mmol/L (22.0-26.0); ABG OXYGEN SATURATION 97.5 % (95-98); ABG PCO2 (T) 49.6 mmHg (32.0-45.0); ABG PH (T) 7.413 (7.350-7.450); FCOHb 1.1 % (0.5-1.5); FMetHb 0.3 % (0.3-1.12); FO2Hb 96.1 % (94-100); MINUTE VOLUME 7 L/min; PATIENT TEMPERATURE 37.3; PEEP 5 cm H2O; RESPIRATORY RATE 20 b/min; RESPIRATORY RATE (OBSERVED) 25 b/min; TIDAL VOLUME 374 mL; TOTAL HEMOGLOBIN 14.2 G/dl (12.0-16.0)
[2018-02-25] MEDS: ipratropium/albuterol 3ml nebule IH SCH (04:00)
[2018-02-25 05:14] LABS: BASOPHILS % (AUTO) 0.1 % (0-1); EOSINOPHILS % (AUTO) 0 % (0-6); HEMATOCRIT 40.1 % (35.0-45.0); HEMOGLOBIN 13.3 g/dl (12.0-16.0); LYMPHOCYTES # (AUTO) 0.2 X10'3 (1.1-4.8); LYMPHOCYTES % (AUTO) 2.4 % (21-51); MEAN CORPUSCULAR HEMOGLOBIN 30.5 PG (27.0-31.0); MEAN CORPUSCULAR HGB CONC 33.1 % (33.0-36.5); MEAN CORPUSCULAR VOLUME 92.1 FL (78-98); MEAN PLATELET VOLUME 9.1 FL (7.4-10.4); MONOCYTES # (AUTO) 0.9 X10'3 (0-0.9); MONOCYTES % (AUTO) 8.9 % (2-12); NEUTROPHILS % (AUTO) 88.6 % (42-75); PLATELET COUNT 201 X10'3 (140-440); RED BLOOD COUNT 4.36 X10'6 (4.20-5.60); RED CELL DISTRIBUTION WIDTH 13.9 % (11.5-14.5); WHITE BLOOD COUNT 10.1 X10'3 (4.5-11.0)
[2018-02-25 05:48] LABS: ALANINE AMINOTRANSFERASE 147 U/L (12-78); ALBUMIN/GLOBULIN RATIO 0.9 (1.1-1.5); ALKALINE PHOSPHATASE 110 IU/L (46-116); ANION GAP 10 (8-16); ASPARTATE AMINO TRANSFERASE 176 U/L (10-37); BILIRUBIN,TOTAL 0.4 MG/DL (0.1-1.0); BLOOD UREA NITROGEN 25 MG/DL (7-18); BUN/CREATININE RATIO 26.6 (6.6-38.0); CALCIUM 8.3 MG/DL (8.5-10.1); CHLORIDE 92 MMOL/L (99-107); CREATININE 0.94 MG/DL (0.40-0.90); GLUCOSE 158 MG/DL (70-104); POTASSIUM 3.2 MMOL/L (3.5-5.1); SODIUM 137 MMOL/L (135-145); TOTAL CARBON DIOXIDE 35.3 MMOL/L (24-32); TOTAL PROTEIN 6.3 G/DL (6.4-8.2); eGFR 59 ML/MIN
[2018-02-25] MEDS: CefTRIAXone/D5W-Rocephin 1gm 50 ML IV SCH (08:00)
[2018-02-25] MEDS: furosemide 20 MG/2 ML vial IV SCH ×2 (08:00→20:19)
[2018-02-25] MEDS: potassium chloride 10mEq ER tablet PO SCH (08:00)
[2018-02-25] MEDS: levoTHYROXINE 25mcg tablet PO SCH (08:00)
[2018-02-25] MEDS: lactobacillus rhamnosus 10,000 MMU CELLS/CAPSULE PO SCH ×2 (08:00→20:19)
[2018-02-25] MEDS: acetaminophen w/codeine (30MG) #3 tablet PO SCH ×3 (08:00→21:33)
[2018-02-25] MEDS: azithromycin 250mg tablet PO SCH (08:00)
[2018-02-25] MEDS: theophylline anhydrous 100mg ER capsule 24-hour PO SCH (08:00)
--- NOTE | 2018-02-25 09:35 | NUR ---
Pt with one PIV. Tried to place a second site but couldnt. RN at bedside with ultrasound to try but unable. Dr Aguirre notified. Orders to get a second IV. PICC nurse tony. Addendum: 02/25/18 at 0959 by Dago Erazo RN PIV infiltrated. Dr Aguirre notified. Orders for PICC; PICC nurse notified and consent obtained
[2018-02-25] MEDS: triamterene/HCTZ 37.5/25mg tablet PO SCH (10:11)
--- NOTE | 2018-02-25 11:00 | NUR ---
Dr Aguirre at bedside; Updated on patient condition: Decreased BP and urine output. Blood in OG tube with stomach discomfort. K 3.3. MD states to get an ABG and he will update her admit orders and address other concerns.
[2018-02-25 11:46] LABS: ABG BASE EXCESS 12.1 mmol/L (-2.0-3.0); ABG HCO3 37.4 mmol/L (22.0-26.0); ABG OXYGEN SATURATION 98.2 % (95-98); ABG PCO2 (T) 52.7 mmHg (32.0-45.0); ABG PH (T) 7.473 (7.350-7.450); ABG PO2 (T) 119.4 mmHg (83-108); ALLEN'S TEST Positive; FCOHb 0.3 % (0.5-1.5); FMetHb 0.2 % (0.3-1.12); FO2Hb 97.7 % (94-100); MINUTE VOLUME 5 L/min; PEEP 5 cm H2O; RESPIRATORY RATE 20 b/min; RESPIRATORY RATE (OBSERVED) 20 b/min; TIDAL VOLUME 265 mL; TOTAL HEMOGLOBIN 13.5 G/dl (12.0-16.0)
--- NOTE | 2018-02-25 11:56 | NUR ---
ABG reported to Dr Aguirre. Order to decrease RR to 16
[2018-02-25] MEDS: FENTANYL-0.9 % NACL/PF 100 ML IV PRN (15:30)
[2018-02-25] MEDS: normal saline 1000ml 1,000 ML IV SCH ×3 (15:49→23:18)
[2018-02-25] MEDS ORDERED: potassium Cl 40MEQ/NS 500ml 500 ML IV PRN (16:25)
[2018-02-25] MEDS ORDERED: potassium Cl 20 mEq SR tablet PO PRN ×2 (16:25)
[2018-02-25] MEDS ORDERED: acetaminophen 325mg tablet PO PRN ×2 (16:25)
[2018-02-25] MEDS ORDERED: ondansetron/PF 4mg/2ml inj IV PRN (16:25)
[2018-02-25] MEDS ORDERED: potassium Cl 40MEQ/250ML bag 250 ML IV PRN (16:25)
[2018-02-25] MEDS: potassium Cl 40MEQ/NS 500ml 500 ML IV PRN (18:24)
[2018-02-25] MEDS: mineral oil/petrolatum ophthal oint EACHEYE SCH (20:00)
[2018-02-25] MEDS: famotidine/PF 10 mg/ml inj IV SCH (20:19)
[2018-02-25] MEDS: docusate sod 100mg capsule PO SCH (20:19)
[2018-02-26] VITALS (24 sets, daily range): BP systolic 80–154; BP diastolic 52–85
[2018-02-26] MEDS: mineral oil/petrolatum ophthal oint EACHEYE SCH ×4 (02:00→20:00)
[2018-02-26] MEDS: ipratropium/albuterol 3ml nebule NEB SCH ×6 (03:08→23:03)
[2018-02-26 03:09] LABS: ALANINE AMINOTRANSFERASE 97 U/L (12-78); ALBUMIN 2.6 G/DL (3.4-5.0); ALBUMIN/GLOBULIN RATIO 0.9 (1.1-1.5); ALKALINE PHOSPHATASE 78 IU/L (46-116); ANION GAP 3 (8-16); ASPARTATE AMINO TRANSFERASE 74 U/L (10-37); BILIRUBIN,TOTAL 0.3 MG/DL (0.1-1.0); BLOOD UREA NITROGEN 26 MG/DL (7-18); CALCIUM 7.8 MG/DL (8.5-10.1); CHLORIDE 100 MMOL/L (99-107); CREATININE 1.04 MG/DL (0.40-0.90); GLUCOSE 186 MG/DL (70-104); PHOSPHORUS 1.3 MG/DL (2.3-4.5); POTASSIUM 3.3 MMOL/L (3.5-5.1); SODIUM 140 MMOL/L (135-145); TOTAL CARBON DIOXIDE 37.1 MMOL/L (24-32); TOTAL PROTEIN 5.5 G/DL (6.4-8.2); eGFR 52 ML/MIN
[2018-02-26 03:14] LABS: BASOPHILS % (AUTO) 0.1 % (0-1); EOSINOPHILS % (AUTO) 0 % (0-6); HEMATOCRIT 35.9 % (35.0-45.0); HEMOGLOBIN 11.9 g/dl (12.0-16.0); LYMPHOCYTES # (AUTO) 0.2 X10'3 (1.1-4.8); LYMPHOCYTES % (AUTO) 2.2 % (21-51); MEAN CORPUSCULAR HEMOGLOBIN 30.4 PG (27.0-31.0); MEAN CORPUSCULAR HGB CONC 33.1 % (33.0-36.5); MEAN PLATELET VOLUME 9.4 FL (7.4-10.4); MONOCYTES # (AUTO) 0.6 X10'3 (0-0.9); MONOCYTES % (AUTO) 6.9 % (2-12); NEUTROPHILS # (AUTO) 8.5 X10'3 (1.8-7.7); NEUTROPHILS % (AUTO) 90.8 % (42-75); PLATELET COUNT 187 X10'3 (140-440); RED CELL DISTRIBUTION WIDTH 14.9 % (11.5-14.5); WHITE BLOOD COUNT 9.3 X10'3 (4.5-11.0)
[2018-02-26 03:25] LABS: ABG BASE EXCESS 10.9 mmol/L (-2.0-3.0); ABG HCO3 36.1 mmol/L (22.0-26.0); ABG PH (T) 7.469 (7.350-7.450); ABG PO2 (T) 110.7 mmHg (83-108); ALLEN'S TEST Positive; FCOHb 0.2 % (0.5-1.5); FMetHb 0.1 % (0.3-1.12); FO2Hb 97.7 % (94-100); MINUTE VOLUME 5 L/min; PATIENT TEMPERATURE 37.5; PEEP 5 cm H2O; RESPIRATORY RATE 16 b/min; RESPIRATORY RATE (OBSERVED) 16 b/min; TOTAL HEMOGLOBIN 12.6 G/dl (12.0-16.0)
[2018-02-26] MEDS ORDERED: insulin Lispro (HumaLOG) vial - multi-dose SQ SCH (04:20)
[2018-02-26] MEDS ORDERED: MESSAGE TO PHARMACY PO ONE (04:20)
[2018-02-26] MEDS ORDERED: dextrose ORAL solution 15 GM/59 ML bottle PO PRN ×2 (04:20)
[2018-02-26] MEDS ORDERED: dextrose 50%-water 50ml dispensing syringe IV PRN ×2 (04:20)
[2018-02-26] MEDS ORDERED: glucagon, human recombinant 1mg kit SUBCUT PRN (04:20)
[2018-02-26] MEDS: methylPREDNISolone sod succ/PF 40mg inj. IV SCH ×4 (04:49→20:17)
[2018-02-26] MEDS: normal saline 1000ml 1,000 ML IV SCH ×3 (06:38→23:03)
[2018-02-26] MEDS: theophylline anhydrous 100mg ER capsule 24-hour PO SCH (08:00)
[2018-02-26] MEDS: docusate sod 100mg capsule PO SCH ×2 (08:00→20:18)
[2018-02-26] MEDS: acetaminophen w/codeine (30MG) #3 tablet PO SCH ×3 (08:00→20:50)
[2018-02-26] MEDS: triamterene/HCTZ 37.5/25mg tablet PO SCH (09:57)
[2018-02-26] MEDS: enoxaparin 40mg/0.4ml syringe SUBCUT SCH (09:57)
[2018-02-26] MEDS: levoTHYROXINE 25mcg tablet PO SCH (09:57)
[2018-02-26] MEDS: potassium chloride 10mEq ER tablet PO SCH (09:58)
[2018-02-26] MEDS: famotidine/PF 10 mg/ml inj IV SCH ×2 (09:58→20:17)
[2018-02-26] MEDS: potassium Cl 40MEQ/NS 500ml 500 ML IV PRN (09:58)
[2018-02-26] MEDS: CefTRIAXone/D5W-Rocephin 1gm 50 ML IV SCH (09:58)
[2018-02-26] MEDS: lactobacillus rhamnosus 10,000 MMU CELLS/CAPSULE PO SCH ×2 (09:58→20:18)
[2018-02-26] MEDS: FENTANYL-0.9 % NACL/PF 100 ML IV PRN (10:10)
[2018-02-26] MEDS: azithromycin 250mg tablet PO SCH (10:56)
--- NOTE | 2018-02-26 13:35 | NUR ---
Tube feeding consult. Patient is alert, awake, and intubated d/t difficulty breathing and respiratory distress. Pt has h/o COPD. Per MD note not ready to extubation. LBM 4 days ago. Recs below. Recommend: 1. Continuous tube feedings per OG tube using Vital AF at 60 ml/hr will provide total volume of 1440 ml, 1728 cals, 97 gm protein, and 1100 ml free water. 2. Additional 200 ml water flush q 4 3. Daily weights 4. Prealbumin q / 5. When extubated advance diet as medically indicated to regular Addendum: 02/26/18 at [address] Amended: Links added.
--- NOTE | 2018-02-26 17:36 | NUR ---
Tube feed started per MD order
[2018-02-26] MEDS: insulin glargine (Lantus) pen - multi-dose SQ SCH (22:53)
[2018-02-26] MEDS: insulin regular, human vial - multi-dose SQ SCH (22:57)
[2018-02-27] VITALS (24 sets, daily range): BP systolic 93–158; BP diastolic 55–89
[2018-02-27] MEDS: mineral oil/petrolatum ophthal oint EACHEYE SCH ×4 (02:00→20:00)
[2018-02-27] MEDS: methylPREDNISolone sod succ/PF 40mg inj. IV SCH ×4 (02:22→20:27)
[2018-02-27] MEDS: insulin regular, human vial - multi-dose SQ SCH ×2 (03:10→21:33)
[2018-02-27] MEDS: ipratropium/albuterol 3ml nebule NEB SCH ×6 (03:15→23:18)
[2018-02-27 03:56] LABS: ABG HCO3 30.9 mmol/L (22.0-26.0); ABG OXYGEN SATURATION 94.7 % (95-98); ABG PCO2 (T) 45.3 mmHg (32.0-45.0); ABG PH (T) 7.451 (7.350-7.450); ABG PO2 (T) 70.2 mmHg (83-108); ALLEN'S TEST Positive; FCOHb 0.3 % (0.5-1.5); FMetHb 0.2 % (0.3-1.12); FO2Hb 94.2 % (94-100); MINUTE VOLUME 4 L/min; PATIENT TEMPERATURE 36.7; PEEP 5 cm H2O; RESPIRATORY RATE 8 b/min; RESPIRATORY RATE (OBSERVED) 12 b/min
[2018-02-27 03:58] LABS: BASOPHILS % (AUTO) 0 % (0-1); EOSINOPHILS % (AUTO) 0.1 % (0-6); HEMATOCRIT 32.8 % (35.0-45.0); HEMOGLOBIN 11.3 g/dl (12.0-16.0); LYMPHOCYTES # (AUTO) 0.2 X10'3 (1.1-4.8); LYMPHOCYTES % (AUTO) 2.2 % (21-51); MEAN CORPUSCULAR HEMOGLOBIN 31.5 PG (27.0-31.0); MEAN CORPUSCULAR HGB CONC 34.4 % (33.0-36.5); MEAN CORPUSCULAR VOLUME 91.6 FL (78-98); MEAN PLATELET VOLUME 8.9 FL (7.4-10.4); MONOCYTES # (AUTO) 0.8 X10'3 (0-0.9); MONOCYTES % (AUTO) 6.7 % (2-12); NEUTROPHILS # (AUTO) 10.3 X10'3 (1.8-7.7); PLATELET COUNT 207 X10'3 (140-440); RED BLOOD COUNT 3.59 X10'6 (4.20-5.60); RED CELL DISTRIBUTION WIDTH 14.8 % (11.5-14.5); WHITE BLOOD COUNT 11.3 X10'3 (4.5-11.0)
[2018-02-27 04:06] LABS: ALANINE AMINOTRANSFERASE 93 U/L (12-78); ALBUMIN 2.4 G/DL (3.4-5.0); ALBUMIN/GLOBULIN RATIO 0.8 (1.1-1.5); ALKALINE PHOSPHATASE 63 IU/L (46-116); ANION GAP 6 (8-16); ASPARTATE AMINO TRANSFERASE 71 U/L (10-37); BILIRUBIN,TOTAL 0.2 MG/DL (0.1-1.0); BLOOD UREA NITROGEN 28 MG/DL (7-18); BUN/CREATININE RATIO 30.4 (6.6-38.0); CALCIUM 7.7 MG/DL (8.5-10.1); CHLORIDE 103 MMOL/L (99-107); CREATININE 0.92 MG/DL (0.40-0.90); GLUCOSE 142 MG/DL (70-104); MAGNESIUM 2.1 MG/DL (1.5-2.4); PHOSPHORUS 1.7 MG/DL (2.3-4.5); POTASSIUM 3.1 MMOL/L (3.5-5.1); SODIUM 141 MMOL/L (135-145); TOTAL CARBON DIOXIDE 32.3 MMOL/L (24-32); TOTAL PROTEIN 5.3 G/DL (6.4-8.2); eGFR 60 ML/MIN
[2018-02-27] MEDS: potassium Cl 40MEQ/NS 500ml 500 ML IV PRN (05:30)
[2018-02-27] MEDS: normal saline 1000ml 1,000 ML IV SCH (07:13)
[2018-02-27] MEDS: triamterene/HCTZ 37.5/25mg tablet PO SCH (08:00)
[2018-02-27] MEDS: theophylline anhydrous 100mg ER capsule 24-hour PO SCH (08:00)
[2018-02-27] MEDS ORDERED: potassium Cl oral solution 20 MEQ/15 ML PO PRN (08:03)
[2018-02-27] MEDS: magnesium hydroxide 30ml (MOM) UD suspension PO PRN (09:36)
[2018-02-27] MEDS: enoxaparin 40mg/0.4ml syringe SUBCUT SCH (09:36)
[2018-02-27] MEDS: acetaminophen w/codeine (30MG) #3 tablet PO SCH ×3 (09:37→20:28)
[2018-02-27] MEDS: azithromycin 250mg tablet PO SCH (09:38)
[2018-02-27] MEDS: docusate sodium 100mg/10ml UD cup PO SCH ×2 (09:38→20:27)
[2018-02-27] MEDS: lactobacillus rhamnosus 10,000 MMU CELLS/CAPSULE PO SCH ×2 (09:38→20:28)
[2018-02-27] MEDS: famotidine/PF 10 mg/ml inj IV SCH ×2 (09:38→20:28)
[2018-02-27] MEDS: levoTHYROXINE 25mcg tablet PO SCH (09:38)
[2018-02-27] MEDS: CefTRIAXone/D5W-Rocephin 1gm 50 ML IV SCH (09:40)
--- NOTE | 2018-02-27 10:25 | NUR ---
MD at bedside. Orders received. Patient not quite ready to extubate, but will try again later today.
--- NOTE | 2018-02-27 10:41 | NUR ---
Friend at bedside. Pt requested friend take belongings home, which she did
[2018-02-27] MEDS ORDERED: furosemide 20 MG/2 ML vial IV ONE (11:00)
--- NOTE | 2018-02-27 14:00 | NUR ---
Patient placed on CPAP/PS as tolerated. Plan to extubate tomorrow morning if all goes well, per Dr Zamarripa
[2018-02-27] MEDS: dexmedetomidin/NS 400mcg/100ml 100 ML IV SCH (17:57)
--- NOTE | 2018-02-27 18:30 | NUR ---
Patient in room CICU 2006. I have received report from Dago DURÁN and had the opportunity to ask questions and assume patient care.
[2018-02-27] MEDS: insulin glargine (Lantus) pen - multi-dose SQ SCH (21:33)
[2018-02-28] VITALS (24 sets, daily range): BP systolic 104–167; BP diastolic 62–97
[2018-02-28] MEDS: mineral oil/petrolatum ophthal oint EACHEYE SCH ×2 (02:00→07:01)
[2018-02-28] MEDS: methylPREDNISolone sod succ/PF 40mg inj. IV SCH ×4 (02:30→20:04)
[2018-02-28] MEDS: insulin regular, human vial - multi-dose SQ SCH (02:33)
[2018-02-28 03:15] LABS: BASOPHILS % (AUTO) 0.1 % (0-1); EOSINOPHILS % (AUTO) 0 % (0-6); HEMATOCRIT 34.9 % (35.0-45.0); HEMOGLOBIN 11.9 g/dl (12.0-16.0); LYMPHOCYTES # (AUTO) 0.3 X10'3 (1.1-4.8); LYMPHOCYTES % (AUTO) 1.7 % (21-51); MEAN CORPUSCULAR HGB CONC 33.9 % (33.0-36.5); MEAN CORPUSCULAR VOLUME 91.5 FL (78-98); MEAN PLATELET VOLUME 8.8 FL (7.4-10.4); MONOCYTES # (AUTO) 0.7 X10'3 (0-0.9); MONOCYTES % (AUTO) 4.7 % (2-12); NEUTROPHILS # (AUTO) 14.3 X10'3 (1.8-7.7); NEUTROPHILS % (AUTO) 93.5 % (42-75); PLATELET COUNT 217 X10'3 (140-440); RED BLOOD COUNT 3.82 X10'6 (4.20-5.60); RED CELL DISTRIBUTION WIDTH 15.1 % (11.5-14.5); WHITE BLOOD COUNT 15.3 X10'3 (4.5-11.0)
[2018-02-28 03:24] LABS: ALANINE AMINOTRANSFERASE 93 U/L (12-78); ALBUMIN 2.4 G/DL (3.4-5.0); ALBUMIN/GLOBULIN RATIO 0.8 (1.1-1.5); ALKALINE PHOSPHATASE 66 IU/L (46-116); ANION GAP 7 (8-16); ASPARTATE AMINO TRANSFERASE 63 U/L (10-37); BILIRUBIN,TOTAL 0.3 MG/DL (0.1-1.0); BLOOD UREA NITROGEN 33 MG/DL (7-18); BUN/CREATININE RATIO 39.8 (6.6-38.0); CALCIUM 8.3 MG/DL (8.5-10.1); CHLORIDE 101 MMOL/L (99-107); CREATININE 0.83 MG/DL (0.40-0.90); GLUCOSE 179 MG/DL (70-104); MAGNESIUM 2.2 MG/DL (1.5-2.4); PHOSPHORUS 1.3 MG/DL (2.3-4.5); POTASSIUM 3.7 MMOL/L (3.5-5.1); SODIUM 140 MMOL/L (135-145); TOTAL CARBON DIOXIDE 32.3 MMOL/L (24-32); TOTAL PROTEIN 5.6 G/DL (6.4-8.2); eGFR 68 ML/MIN
[2018-02-28] MEDS: ipratropium/albuterol 3ml nebule NEB SCH ×6 (03:31→23:05)
[2018-02-28 03:40] LABS: ABG BASE EXCESS 7.2 mmol/L (-2.0-3.0); ABG HCO3 31.4 mmol/L (22.0-26.0); ABG OXYGEN SATURATION 96.4 % (95-98); ABG PCO2 (T) 42.8 mmHg (32.0-45.0); ABG PH (T) 7.484 (7.350-7.450); ABG PO2 (T) 76.4 mmHg (83-108); ALLEN'S TEST Positive; FCOHb 0.3 % (0.5-1.5); FMetHb 0.1 % (0.3-1.12); MINUTE VOLUME 5 L/min; PEEP 5 cm H2O; RESPIRATORY RATE 8 b/min; RESPIRATORY RATE (OBSERVED) 9 b/min; TOTAL HEMOGLOBIN 12.9 G/dl (12.0-16.0)
--- NOTE | 2018-02-28 06:27 | NUR ---
Patient in room CICU 2006. I have received report from LUIS ARMANDO Christopher and had the opportunity to ask questions and assume patient care.
--- NOTE | 2018-02-28 06:45 | NUR ---
Problems reprioritized. Patient report given, questions answered & plan of care reviewed with Isidro DURÁN.
[2018-02-28] MEDS: theophylline anhydrous 100mg ER capsule 24-hour PO SCH (07:01)
[2018-02-28] MEDS: docusate sodium 100mg/10ml UD cup PO SCH ×2 (07:42→20:04)
[2018-02-28] MEDS: lactobacillus rhamnosus 10,000 MMU CELLS/CAPSULE PO SCH ×2 (07:42→20:04)
[2018-02-28] MEDS: triamterene/HCTZ 37.5/25mg tablet PO SCH (07:42)
[2018-02-28] MEDS: levoTHYROXINE 25mcg tablet PO SCH (07:42)
[2018-02-28] MEDS: acetaminophen w/codeine (30MG) #3 tablet PO SCH ×3 (07:42→20:05)
[2018-02-28] MEDS: CefTRIAXone/D5W-Rocephin 1gm 50 ML IV SCH (07:43)
[2018-02-28] MEDS: enoxaparin 40mg/0.4ml syringe SUBCUT SCH (07:43)
[2018-02-28] MEDS: famotidine/PF 10 mg/ml inj IV SCH (07:43)
[2018-02-28] MEDS: potassium Cl oral solution 20 MEQ/15 ML PO SCH (07:43)
[2018-02-28] MEDS: azithromycin 250mg tablet PO SCH (07:45)
[2018-02-28] MEDS ORDERED: furosemide 20 MG/2 ML vial IV ONE (08:45)
[2018-02-28] MEDS ORDERED: morphine 2 MG/ML inj. syringe IV ONE (09:20)
[2018-02-28] MEDS ORDERED: fentaNYL/PF 50MCG/1 ML 2ML syringe IV ONE (09:45)
[2018-02-28] MEDS: dexmedetomidin/NS 400mcg/100ml 100 ML IV SCH ×4 (11:41→23:35)
--- NOTE | 2018-02-28 12:53 | NUR ---
Dr Zamarripa on telephone - okay given to try pt on NC.
--- NOTE | 2018-02-28 18:20 | NUR ---
[facility] I have received report from bryan lacy and had the opportunity to ask questions and assume patient care. Addendum: 02/28/18 at 1821 by Ji Vick RN received report rebekah
--- NOTE | 2018-02-28 18:39 | NUR ---
Problems reprioritized. Patient report given, questions answered & plan of care reviewed with LUIS ARMANDO Sneed. Addendum: 02/28/18 at 1856 by Ji Vick RN upon entering room pt c/o anxiety; precedex at 0.4; charge nurse baljit notified and increased by 0.1 per protocol orders. will continue to monitor. hr 80 rr22
[2018-02-28] MEDS: famotidine 20mg tablet PO SCH (20:05)
--- NOTE | 2018-02-28 20:59 | NUR ---
nursing bss performed; patient swallowing thin liquids and ensure shakes brought from home well; in non distress Addendum: 02/28/18 at 2100 by Ji Vick RN no coughing or sxs of choking
[2018-02-28] MEDS: magnesium hydroxide 30ml (MOM) UD suspension PO PRN (21:01)
--- NOTE | 2018-02-28 21:07 | NUR ---
spoke to february about diet order; ordered to resume regular diet since off tube feedings also ordered nurse to titrate precedex per order for anxiety and that at this time no ativan to be resumed; will inform day shift in am Addendum: 02/28/18 at 2144 by Ji Vick RN precedex increased from 0.5 to 0.6; hr 82 rr 17
--- NOTE | 2018-02-28 22:37 | NUR ---
PATIENT CALLED NURSE INTO ROOM AND ORDERED TO HAVE A COUGH DROP "FOR THE RUMBLING IN MY CHEST" PATIENT IS REPORTING SHE IS NOT BRINGING UP PHLEGM; NURSE ENCOURAGED C &DB AND EDUCATED THAT ITS IMPORTANT TO BRING IT UP IF SHE CAN. SHE CUT NURSE OFF MID SENTENCE AND DEMANDED A COUGH DROP. FEBRUARY EXPLOSIVE ORDNANCE DISPOSAL TECHNICIAN CALLED AND LEFT MESSAGE Addendum: 02/28/18 at 7567 by Ji Vick RN FEBRUARY ORDERED CEPACOL PRN COUGH
[2018-02-28] MEDS ORDERED: benzocaine/menthol oral lozeng 1 EACH BOX MM PRN (22:55)
[2018-03-01] VITALS (23 sets, daily range): BP systolic 57–170; BP diastolic 39–118
--- NOTE | 2018-03-01 00:36 | NUR ---
AFTER RETURNING FROM LUNCH NURSE MADE ROUNDS INTO ROOM AND PATIENT WROTE ON PAPER "CALL 911" WHEN NURSE ASKED PATIENT WHAT THE MATTER WAS OR IF I COULD DO SOMETHING DIFFERENT SHE REFUSED TO SAY OR EXPLAIN WHAT THE ISSUE WAS. FARNAZ RN HAD PATIENT LAST NIGHT AND WENT INTO ROOM TO TALK TO PATIENT, BUT PATIENT WOULD NOT EXPLAIN WHAT WAS IRRITATING HER BUT WANTED HER TO CALL 911 TOO. FARNAZ RN STATED PATIENT'S MENTATION WAS DIFFERENT FORM LAST NIGHT. WE EXPLAINED SHE IS IN THE ICU IN THE HOSPITAL ALREADY. SAMANTHA MICHAELS RN MADE AWARE AND TO DO REPEAT ABG FOR CHANGE IN MENTATION Addendum: 03/01/18 at 0123 by iJ Vick RN FEBRUARY LADLE CLEANER MADE AWARE AND CHARGE NURSE SINGH AT BEDSIDE; PATIENT HAS DISORGANIZED THINKING. REFUSING TO HAVE NURSES DO ABG OR EVEN HANG NEW BAG OF PRECEDEX. SAMANTHA DURÁN INCREASED RATE FROM 0.5 TO 0.6. PATIENT IS INSISTING ON CALLING SISTER KRISTEN. PATIENT REFUSING FOR NURSES TO USE PATIENT HOSPITAL PHONE IN ROOM AND TO USE ANOTHER PHONE. AFTER CONVINCING PATIENT DIALED KRISTEN'S NUMBER ON PHONE AND LEFT MESSAGE TO CALL 911 AND "SOMETHING WASN'T RIGHT" BUT PATIENT STILL REFUSED TO TELL NURSES WHAT WAS BOTHERING HER OR HOW WE COULD HELP HER. PATIENT REFUSING NURSE TO EVEN TOUCH HER. FEBRUARY LADLE CLEANER AT THIS TIME ORDERED NURSE TO CONTINUE MONITORING PATIENT AND IF BP DOES NOT GO DOWN TO CALL FOR A NEW ORDER. PATIENT IN NO DISTRESS AT THIS TIME BUT HAS ATTEMPTED TO TAKE HER BP CUFF OFF. ABG NOT ABLE TO BE OBTAINED. PATIENT IS ALERT AND ORIENTED X4 BUT OVER THE PAST HOUR HAS BECOME VERY PARANOID. FEBRUARY LADLE CLEANER AWARE OF PT STATUS ON PRECEDEX.
[2018-03-01] MEDS: dexmedetomidin/NS 400mcg/100ml 100 ML IV SCH ×5 (00:50→22:33)
--- NOTE | 2018-03-01 01:39 | NUR ---
PATIENT TAKING OFF PULSE OX AND REFUSING NURSE TO PUT BACK ON; FEBRUARY SCRUM PRODUCT OWNER AT BEDSIDE ASSESSED PT AGAIN. PATIENT AFTER MUCH CONVINCING ALLOWED NURSE TO PUT BACK O2SAT Addendum: 03/01/18 at 0158 by Ji Vick RN PATIENT CALLED NURSE INTO ROOM AND ASKED "CALL ABILIO" WHEN I ASKED IF SHE MEANT SHAKEEL SHE SAID YES. SHE SAID SHE WANTED TO SPEAK TO HIM, I OFFERED TO HELP DIAL THE NUMBER SINCE SHE DID NOT KNOW THE NUMBER. PATIENT REFUSED AND SAID "NO JUST LEAVE ME ALONE" WILL CONTINUE TO MONITOR. V/S STABLE
[2018-03-01] MEDS: methylPREDNISolone sod succ/PF 40mg inj. IV SCH ×5 (02:00→20:43)
--- NOTE | 2018-03-01 02:24 | NUR ---
PATIENT REFUSING BP AND MEDS AT THIS TIME; PATIENT REACHED SHAKEEL AND SHAKEEL CALLED BACK NURSES STATION. HE TOLD NURSE SHE HUNG UP ON HIM. HE IS UNAWARE OF WHAT MIGHT BE CAUSING HER CONFUSION; HE STATED SHE TAKES A LOT OF PILLS FEBRUARY CALLED AND ORDERED NURSE TO INCREASE PRECEDEX TO 7 AND TO TAKE BPS EVERY FEW HOURS INSTEAD OF EVERY HOUR IF PATIENT IS REFUSING. PATIENT REFUSED 0200 BP AND MEDS Addendum: 03/01/18 at 0234 by Ji Vick RN FEBRUARY NOTIFIED THAT HR IS IN THE 120'S AT ONE POINT; STATED SHE WOULD COME BY TO LOOK AT PATIENT AGAIN Addendum: 03/01/18 at 0239 by Ji Vick RN PATIENT REPORTS THAT NURSE IS "PLAYING A GAME" AND IS REFUSING NURSE TO FIX PULSE OX
[2018-03-01 02:55] LABS: ABG BASE EXCESS 6.8 mmol/L (-2.0-3.0); ABG HCO3 35.8 mmol/L (22.0-26.0); ABG OXYGEN SATURATION 69.9 % (95-98); ABG PCO2 (T) 70.6 mmHg (32.0-45.0); ABG PH (T) 7.324 (7.350-7.450); ABG PO2 (T) 39.4 mmHg (83-108); ALLEN'S TEST Positive; FCOHb 0.8 % (0.5-1.5); FLOW 3 L/min; FMetHb 0.3 % (0.3-1.12); FO2Hb 69.1 % (94-100); PATIENT TEMPERATURE 37.2; TOTAL HEMOGLOBIN 16.1 G/dl (12.0-16.0)
[2018-03-01] MEDS ORDERED: morphine 4 MG/ML inj SYRINge ONE (02:58)
[2018-03-01] MEDS: ipratropium/albuterol 3ml nebule NEB SCH ×6 (03:02→23:13)
[2018-03-01] MEDS: morphine 4 MG/ML inj SYRINge IV PRN ×2 (03:03→20:15)
--- NOTE | 2018-03-01 03:16 | NUR ---
PATIENT CAME MORE SOB AND LABORED BREATHING, VERY ANXIOUS! BARELY ABLE TO TALK; STAT ABG OBTAINED AND SHOW LOW PO2. BIPAP PLACED ON AND FEBRUARY COMMERCIAL LOAN OFFICER ARRIVED TO ASSESS PATIENT. SOLUMEDROL GIVEN LATE SINCE PT REFUSED EARLIER. WILL CONTINUE TO MONITOR. PATIENT BIPAP AT 35% Addendum: 03/01/18 at 0322 by Ji Vick RN FEBRUARY ORDERED O2SAT TO BE BETWEEN 88-92% AND TO KEEP PRECEDEX AT .7 AT THIS TIME
[2018-03-01 04:01] LABS: ABG BASE EXCESS 14.2 mmol/L (-2.0-3.0); ABG HCO3 45.2 mmol/L (22.0-26.0); ABG OXYGEN SATURATION 94.8 % (95-98); ABG PH (T) 7.311 (7.350-7.450); ABG PO2 (T) 81.2 mmHg (83-108); ALLEN'S TEST Positive; FCOHb 0.3 % (0.5-1.5); FMetHb 0.3 % (0.3-1.12); FO2Hb 94.2 % (94-100); PATIENT TEMPERATURE 37.3; RESPIRATORY RATE 12 b/min; RESPIRATORY RATE (OBSERVED) 18 b/min; TOTAL HEMOGLOBIN 14.9 G/dl (12.0-16.0)
[2018-03-01 04:40] LABS: ALANINE AMINOTRANSFERASE 139 U/L (12-78); ALBUMIN 2.7 G/DL (3.4-5.0); ALBUMIN/GLOBULIN RATIO 0.8 (1.1-1.5); ALKALINE PHOSPHATASE 77 IU/L (46-116); ANION GAP 5 (8-16); ASPARTATE AMINO TRANSFERASE 102 U/L (10-37); BILIRUBIN,TOTAL 0.4 MG/DL (0.1-1.0); BLOOD UREA NITROGEN 33 MG/DL (7-18); BUN/CREATININE RATIO 38.8 (6.6-38.0); CALCIUM 8.3 MG/DL (8.5-10.1); CHLORIDE 98 MMOL/L (99-107); CREATININE 0.85 MG/DL (0.40-0.90); GLUCOSE 170 MG/DL (70-104); MAGNESIUM 2.3 MG/DL (1.5-2.4); PHOSPHORUS 4.9 MG/DL (2.3-4.5); POTASSIUM 4.4 MMOL/L (3.5-5.1); PREALBUMIN 20.1 MG/DL (19-36); SODIUM 138 MMOL/L (135-145); TOTAL PROTEIN 6.3 G/DL (6.4-8.2); eGFR 66 ML/MIN
[2018-03-01 04:47] LABS: BASOPHILS # (AUTO) 0.1 X10'3 (0-0.2); BASOPHILS % (AUTO) 0.3 % (0-1); EOSINOPHILS % (AUTO) 0 % (0-6); HEMATOCRIT 42.7 % (35.0-45.0); LYMPHOCYTES # (AUTO) 0.2 X10'3 (1.1-4.8); LYMPHOCYTES % (AUTO) 1.1 % (21-51); MEAN CORPUSCULAR HEMOGLOBIN 30.1 PG (27.0-31.0); MEAN CORPUSCULAR HGB CONC 32.9 % (33.0-36.5); MEAN CORPUSCULAR VOLUME 91.6 FL (78-98); MONOCYTES # (AUTO) 1.1 X10'3 (0-0.9); MONOCYTES % (AUTO) 4.9 % (2-12); NEUTROPHILS % (AUTO) 93.7 % (42-75); PLATELET COUNT 336 X10'3 (140-440); RED BLOOD COUNT 4.66 X10'6 (4.20-5.60); RED CELL DISTRIBUTION WIDTH 15.1 % (11.5-14.5); WHITE BLOOD COUNT 22.4 X10'3 (4.5-11.0)
[2018-03-01 05:06] LABS: ABG BASE EXCESS 10.7 mmol/L (-2.0-3.0); ABG HCO3 38.7 mmol/L (22.0-26.0); ABG OXYGEN SATURATION 96.6 % (95-98); ABG PH (T) 7.374 (7.350-7.450); ABG PO2 (T) 91.7 mmHg (83-108); ALLEN'S TEST Positive; FCOHb 0.2 % (0.5-1.5); FMetHb 0.4 % (0.3-1.12); PATIENT TEMPERATURE 37.2; RESPIRATORY RATE (OBSERVED) 20 b/min; TOTAL HEMOGLOBIN 13.9 G/dl (12.0-16.0)
--- NOTE | 2018-03-01 05:22 | NUR ---
FEBRUARY AVIATION ELECTRICAL TECHNICIAN INFORMED ABOUT MARGINAL BP'S AND LOW UO. NO NEW ORDERS GIVEN AT THIS TIME Addendum: 03/01/18 at 0524 by Ji Vick RN ORDERED NURSE TO TITRATE PRECEDEX GTT DOWN SINCE PT IS NO LONGER ANXIOUS
--- NOTE | 2018-03-01 05:54 | NUR ---
PATIENT AWAKE ON BIPAP STILL; PATIENT IS NODING TO YES AND NO QUESTIONS APPROPRIATELY; LESS DISTRESS THAN A FEW HOURS AGO Addendum: 03/01/18 at 0612 by Ji Vick RN NOTIFIED FEBRUARY EVAPORATOR HELPER AGAIN OF BP'S BEING BORDERLINE AND GAVE NO NEW ORDERS; MAP ABOVE 60
--- NOTE | 2018-03-01 06:24 | NUR ---
Problems reprioritized. Patient report given, questions answered & plan of care reviewed with TYLER DURÁN. PATIENT WITH BIPAP ON IN NO DISTRESS; SITTER AT BEDSIDE.
--- NOTE | 2018-03-01 06:26 | NUR ---
Patient in room CICU 2007. I have received report from Nedra and had the opportunity to ask questions and assume patient care.
[2018-03-01] MEDS: enoxaparin 40mg/0.4ml syringe SUBCUT SCH (07:38)
[2018-03-01] MEDS: CefTRIAXone/D5W-Rocephin 1gm 50 ML IV SCH (07:38)
[2018-03-01] MEDS: lactobacillus rhamnosus 10,000 MMU CELLS/CAPSULE PO SCH ×2 (07:38→20:00)
[2018-03-01] MEDS: docusate sodium 100mg/10ml UD cup PO SCH ×2 (07:39→20:00)
[2018-03-01] MEDS: famotidine 20mg tablet PO SCH ×2 (07:39→20:00)
[2018-03-01] MEDS: levoTHYROXINE 25mcg tablet PO SCH (07:39)
[2018-03-01] MEDS: potassium Cl oral solution 20 MEQ/15 ML PO SCH (07:39)
[2018-03-01] MEDS: triamterene/HCTZ 37.5/25mg tablet PO SCH (07:39)
[2018-03-01] MEDS: acetaminophen w/codeine (30MG) #3 tablet PO SCH ×3 (07:39→21:00)
[2018-03-01] MEDS: theophylline anhydrous 100mg ER capsule 24-hour PO SCH (07:40)
[2018-03-01] MEDS: azithromycin 250mg tablet PO SCH (07:40)
[2018-03-01 10:01] LABS: ABG BASE EXCESS 8.6 mmol/L (-2.0-3.0); ABG OXYGEN SATURATION 93.6 % (95-98); ABG PCO2 (T) 67.3 mmHg (32.0-45.0); ABG PH (T) 7.358 (7.350-7.450); ABG PO2 (T) 69.6 mmHg (83-108); ALLEN'S TEST Positive; FCOHb 0.5 % (0.5-1.5); FMetHb 0.3 % (0.3-1.12); FO2Hb 92.9 % (94-100); MINUTE VOLUME 11 L/min; RESPIRATORY RATE 12 b/min; TIDAL VOLUME 457 mL; TOTAL HEMOGLOBIN 15.2 G/dl (12.0-16.0)
--- NOTE | 2018-03-01 12:06 | NUR ---
Reassessment 03/01: Patient no longer intubated, tube feedings stopped and diet was advanced this morning by DIRECTORY COMPILER to pureed foods with thin liquids d/t difficulty chewing. Per discussion at rounds patient has delirium. No PO intake yet. Will continue to follow and monitor PO intake and need for ONS if not meeting needs. Recommend: 1. Continue pureed diet per DIRECTORY COMPILER recs 2. Monitor need for ONS 3. Wt per rx Addendum: 03/01/18 at [address] Amended: Links added.
--- NOTE | 2018-03-01 12:20 | NUR ---
Pt asks Nicole ward, to have me come in the room. Upon entering the room pt states she is going to kill herself and if I am not going to give her the Ativan to do it she "is just going to hold her[my] breath until she[I] [s]". She then holds her breath and I ask her not to and attempt to negotiate with her. After about fifteen seconds she exhales loudly and then says "just get me the drugs". At this point she looks away from me when I am speaking to her and refuses to participate in her treatment. I inform Dr Aguirre who is on the unit - no new orders received. Will continue to monitor.
[2018-03-01 12:36] LABS: ABG HCO3 39.9 mmol/L (22.0-26.0); ABG PCO2 (T) 71.8 mmHg (32.0-45.0); ABG PH (T) 7.363 (7.350-7.450); ABG PO2 (T) 53.6 mmHg (83-108); ALLEN'S TEST Positive; FCOHb 0.5 % (0.5-1.5); FLOW 2 L/min; FMetHb 0.2 % (0.3-1.12); FO2Hb 87.4 % (94-100); TOTAL HEMOGLOBIN 15.6 G/dl (12.0-16.0)
--- NOTE | 2018-03-01 15:00 | NUR ---
asks me several questions regarding pt prognosis and states he wants to establish a good plan for her continued care. I inform him this would be better to speak with Dr Aguirre about and he agrees to this. I call Dr Aguirre and he states he will be down in a little while to speak to the .
--- NOTE | 2018-03-01 15:27 | NUR ---
Pt's work of breathing has increased greatly in the last hour. Roma Rt has been paged for a breathing treatment and Dr Aguirre was contacted previously regarding my pt and updated on her situation. At this time the verbalizes his wishes for her to be made DNI at this time. slim Frank RN notified. Will update Dr Aguirre.
--- NOTE | 2018-03-01 15:37 | NUR ---
Dr Aguirre at and he speaks with the regarding our pt. Questions are encouraged and answered and in the end the makes the decision to make her DNI at this time. Addendum: 03/01/18 at 1603 by Isidro DOVER RN ABG performed and placed back on BiPAP on 05/08, 35%. at , questions asked, encouraged, and answered. Will monitor.
[2018-03-01 15:51] LABS: ABG BASE EXCESS 7.8 mmol/L (-2.0-3.0); ABG HCO3 39.6 mmol/L (22.0-26.0); ABG OXYGEN SATURATION 83.1 % (95-98); ABG PCO2 (T) 92.5 mmHg (32.0-45.0); ABG PH (T) 7.249 (7.350-7.450); ABG PO2 (T) 53.4 mmHg (83-108); ALLEN'S TEST Positive; FCOHb 0.7 % (0.5-1.5); FMetHb 0.2 % (0.3-1.12); FO2Hb 82.4 % (94-100); TOTAL HEMOGLOBIN 16.1 G/dl (12.0-16.0)
--- NOTE | 2018-03-01 18:23 | NUR ---
Problems reprioritized. Patient report given, questions answered & plan of care reviewed with Angelica.
--- NOTE | 2018-03-01 18:25 | NUR ---
Patient in room CICU 2006. I have received report from LUIS ARMANDO Felix and had the opportunity to ask questions and assume patient care. Sitter is at bedside,patient has Bipap on and is sleeping comfortably. I will continue to monitor.
--- NOTE | 2018-03-01 19:10 | NUR ---
Patient has a Temp of 38.6 and she took 1 Tylenol 325mg, but refused the 2nd. I will continue to monitor.
--- NOTE | 2018-03-01 20:30 | NUR ---
Patient at the bedside, he is concerned that she is not comfortable and suffering. He & Dr. Aguirre changed her code status to DNR today, but he is wondering what the next step is. I advised him that comfort measures would be the next step if he wanted to stop Bipap and all other measures, then we would just keep her comfortably with pain medication and ativan. He will talk to Dr. Aguirre in the morning.
[2018-03-01] MEDS: QUEtiapine 25mg tablet PO SCH (21:00)
--- NOTE | 2018-03-01 21:19 | NUR ---
FERNIE Hernandez is at the bedside, patient is agitated and kicking us, trying to bite off the Bipapand us. She refuses to swallow pills and tells us she just "wants to ".
[2018-03-01] MEDS ORDERED: OLANZapine 5mg rapidly disint. tablet PO ONE (21:20)
[2018-03-02] VITALS (24 sets, daily range): BP systolic 73–176; BP diastolic 51–110
[2018-03-02] MEDS: methylPREDNISolone sod succ/PF 40mg inj. IV SCH ×4 (01:53→20:27)
[2018-03-02] MEDS: ipratropium/albuterol 3ml nebule NEB SCH ×6 (03:10→22:53)
[2018-03-02 03:15] LABS: MAGNESIUM 2.4 MG/DL (1.5-2.4); PHOSPHORUS 4.2 MG/DL (2.3-4.5)
[2018-03-02] MEDS: morphine 4 MG/ML inj SYRINge IV PRN (03:56)
--- NOTE | 2018-03-02 06:22 | NUR ---
Problems reprioritized. Patient report given, questions answered & plan of care reviewed with LUIS ARMANDO Vogel.
--- NOTE | 2018-03-02 06:45 | NUR ---
Patient in room CICU 2006. I have received report from LUIS ARMANDO Dominguez and had the opportunity to ask questions and assume patient care.
[2018-03-02] MEDS: dexmedetomidin/NS 400mcg/100ml 100 ML IV SCH ×2 (07:12→14:33)
[2018-03-02] MEDS: acetaminophen w/codeine (30MG) #3 tablet PO SCH ×3 (08:00→20:11)
[2018-03-02] MEDS: lactobacillus rhamnosus 10,000 MMU CELLS/CAPSULE PO SCH ×3 (08:00→20:00)
[2018-03-02] MEDS: theophylline anhydrous 100mg ER capsule 24-hour PO SCH ×2 (08:00→08:25)
[2018-03-02] MEDS: azithromycin 250mg tablet PO SCH ×2 (08:00→08:26)
[2018-03-02] MEDS: docusate sodium 100mg/10ml UD cup PO SCH ×3 (08:00→20:00)
[2018-03-02] MEDS: triamterene/HCTZ 37.5/25mg tablet PO SCH ×2 (08:00→08:25)
[2018-03-02] MEDS: levoTHYROXINE 25mcg tablet PO SCH ×2 (08:00→08:26)
[2018-03-02] MEDS: potassium Cl oral solution 20 MEQ/15 ML PO SCH ×2 (08:00→08:26)
[2018-03-02] MEDS: famotidine 20mg tablet PO SCH ×3 (08:00→20:00)
[2018-03-02] MEDS: CefTRIAXone/D5W-Rocephin 1gm 50 ML IV SCH (08:27)
[2018-03-02] MEDS: enoxaparin 40mg/0.4ml syringe SUBCUT SCH (08:32)
--- NOTE | 2018-03-02 08:45 | NUR ---
Pt stated she would take medications if she could have some ice water. Pt allowed me to put pills in mouth but the spit them all over her bed. Pt asked for a drink of ice water and turned her head and spit it all over her gown. Pt received IV and subQ medications only this am
[2018-03-02 08:59] LABS: BASOPHILS % (AUTO) 0.2 % (0-1); EOSINOPHILS % (AUTO) 0.1 % (0-6); HEMATOCRIT 37.4 % (35.0-45.0); HEMOGLOBIN 12.2 g/dl (12.0-16.0); LYMPHOCYTES # (AUTO) 0.3 X10'3 (1.1-4.8); LYMPHOCYTES % (AUTO) 2.4 % (21-51); MEAN CORPUSCULAR HGB CONC 32.6 % (33.0-36.5); MEAN CORPUSCULAR VOLUME 92.2 FL (78-98); MEAN PLATELET VOLUME 9.2 FL (7.4-10.4); MONOCYTES # (AUTO) 0.6 X10'3 (0-0.9); NEUTROPHILS % (AUTO) 93.3 % (42-75); PLATELET COUNT 262 X10'3 (140-440); RED BLOOD COUNT 4.06 X10'6 (4.20-5.60); WHITE BLOOD COUNT 13.9 X10'3 (4.5-11.0)
[2018-03-02 11:28] LABS: ALANINE AMINOTRANSFERASE 130 U/L (12-78); ALBUMIN 2.3 G/DL (3.4-5.0); ALBUMIN/GLOBULIN RATIO 0.8 (1.1-1.5); ALKALINE PHOSPHATASE 61 IU/L (46-116); ANION GAP 4 (8-16); ASPARTATE AMINO TRANSFERASE 81 U/L (10-37); BILIRUBIN,TOTAL 0.3 MG/DL (0.1-1.0); BLOOD UREA NITROGEN 43 MG/DL (7-18); BUN/CREATININE RATIO 43.9 (6.6-38.0); CALCIUM 8.3 MG/DL (8.5-10.1); CHLORIDE 97 MMOL/L (99-107); CREATININE 0.98 MG/DL (0.40-0.90); GLUCOSE 121 MG/DL (70-104); POTASSIUM 4.9 MMOL/L (3.5-5.1); SODIUM 138 MMOL/L (135-145); TOTAL CARBON DIOXIDE 37.3 MMOL/L (24-32); TOTAL PROTEIN 5.2 G/DL (6.4-8.2); eGFR 56 ML/MIN
--- NOTE | 2018-03-02 17:03 | NUR ---
Pt refusing turns, blood draws, and medications throughout day. On 1L NC and weaning precedex. Per Dr. Aguirre, possibly tsfr upstairs tomorrow if pt continues to refuse interventions and is completely weaned off precedex. Lung function is poor but pt is currently stable. Restraints removed at 1600 because pt is calm, noncombative, and not pulling at lines/catheter. Will continue to monitor.
--- NOTE | 2018-03-02 18:16 | NUR ---
Problems reprioritized. Patient report given, questions answered & plan of care reviewed with LUIS ARMANDO Garcia.
--- NOTE | 2018-03-02 18:24 | NUR ---
1820..Patient in room CICU 2006. I have received report from Benji DURÁN and had the opportunity to ask questions and assume patient care.
--- NOTE | 2018-03-02 20:07 | NUR ---
1999..Assessment as noted, at bedside, informed that pt is refusing meds and treatments, states he knows. Pt refusing to be repositionedm either with or without assistance, also refusing 2000 meds, and bath.
[2018-03-02] MEDS: QUEtiapine 25mg tablet PO SCH (20:10)
--- NOTE | 2018-03-02 21:24 | NUR ---
2100..Continues to refuse meds, repositioning and now bath and linen change, no other changes noted.
--- NOTE | 2018-03-02 22:02 | NUR ---
2200..Becoming combative with nursing staff,soft restraints to wrists, to prevent pt from striking staff, restraint order current.
--- NOTE | 2018-03-02 23:22 | NUR ---
2300..Resting quietly at the moment, weaning Precedex as tolerated. No other changes noted.
[2018-03-03] VITALS (18 sets, daily range): BP systolic 133–176; BP diastolic 79–158
--- NOTE | 2018-03-03 00:22 | NUR ---
0000..No changes noted.
[2018-03-03] MEDS: methylPREDNISolone sod succ/PF 40mg inj. IV SCH ×4 (01:14→22:24)
--- NOTE | 2018-03-03 01:24 | NUR ---
0100..Continuing to wean Precedex as tolerated. Resting quietly at this time, no other changes noted.
[2018-03-03 03:01] LABS: BASOPHILS % (AUTO) 0 % (0-1); EOSINOPHILS # (AUTO) 0.3 X10'3 (0-0.9); EOSINOPHILS % (AUTO) 1.8 % (0-6); HEMATOCRIT 42.8 % (35.0-45.0); HEMOGLOBIN 14.1 g/dl (12.0-16.0); LYMPHOCYTES # (AUTO) 0.2 X10'3 (1.1-4.8); LYMPHOCYTES % (AUTO) 1.3 % (21-51); MEAN CORPUSCULAR HEMOGLOBIN 30.1 PG (27.0-31.0); MEAN CORPUSCULAR HGB CONC 32.9 % (33.0-36.5); MEAN CORPUSCULAR VOLUME 91.6 FL (78-98); MEAN PLATELET VOLUME 8.8 FL (7.4-10.4); MONOCYTES # (AUTO) 0.6 X10'3 (0-0.9); MONOCYTES % (AUTO) 3.4 % (2-12); NEUTROPHILS # (AUTO) 17.1 X10'3 (1.8-7.7); NEUTROPHILS % (AUTO) 93.5 % (42-75); PLATELET COUNT 340 X10'3 (140-440); RED BLOOD COUNT 4.67 X10'6 (4.20-5.60); RED CELL DISTRIBUTION WIDTH 15.3 % (11.5-14.5); WHITE BLOOD COUNT 18.3 X10'3 (4.5-11.0)
[2018-03-03] MEDS: ipratropium/albuterol 3ml nebule NEB SCH ×6 (03:11→23:50)
[2018-03-03 03:24] LABS: ALANINE AMINOTRANSFERASE 127 U/L (12-78); ALBUMIN 2.6 G/DL (3.4-5.0); ALBUMIN/GLOBULIN RATIO 0.7 (1.1-1.5); ALKALINE PHOSPHATASE 67 IU/L (46-116); ANION GAP 3 (8-16); ASPARTATE AMINO TRANSFERASE 66 U/L (10-37); BILIRUBIN,TOTAL 0.5 MG/DL (0.1-1.0); BLOOD UREA NITROGEN 35 MG/DL (7-18); BUN/CREATININE RATIO 37.6 (6.6-38.0); CALCIUM 8.7 MG/DL (8.5-10.1); CHLORIDE 95 MMOL/L (99-107); CREATININE 0.93 MG/DL (0.40-0.90); GLUCOSE 113 MG/DL (70-104); MAGNESIUM 2.3 MG/DL (1.5-2.4); PHOSPHORUS 4.3 MG/DL (2.3-4.5); POTASSIUM 4.6 MMOL/L (3.5-5.1); SODIUM 137 MMOL/L (135-145); TOTAL PROTEIN 6.2 G/DL (6.4-8.2); eGFR 60 ML/MIN
--- NOTE | 2018-03-03 04:01 | NUR ---
0300..No changes noted.
--- NOTE | 2018-03-03 05:02 | NUR ---
0500..Resting quietly, watching television, no changes noted.
--- NOTE | 2018-03-03 06:14 | NUR ---
0610..Problems reprioritized. Patient report given, questions answered & plan of care reviewed with Benji DURÁN.
--- NOTE | 2018-03-03 06:21 | NUR ---
Patient in room CICU 2006. I have received report from LUIS ARMANDO Garcia and had the opportunity to ask questions and assume patient care.
[2018-03-03] MEDS: levoTHYROXINE 25mcg tablet PO SCH (07:12)
[2018-03-03] MEDS: triamterene/HCTZ 37.5/25mg tablet PO SCH (07:12)
[2018-03-03] MEDS: enoxaparin 40mg/0.4ml syringe SUBCUT SCH (07:12)
[2018-03-03] MEDS: famotidine 20mg tablet PO SCH ×2 (07:12→22:23)
[2018-03-03] MEDS: theophylline anhydrous 100mg ER capsule 24-hour PO SCH (07:12)
[2018-03-03] MEDS: azithromycin 250mg tablet PO SCH (07:13)
[2018-03-03] MEDS: lactobacillus rhamnosus 10,000 MMU CELLS/CAPSULE PO SCH ×2 (07:13→22:22)
[2018-03-03] MEDS: CefTRIAXone/D5W-Rocephin 1gm 50 ML IV SCH (07:13)
[2018-03-03] MEDS: acetaminophen w/codeine (30MG) #3 tablet PO SCH ×2 (07:13→13:00)
[2018-03-03] MEDS: docusate sodium 100mg/10ml UD cup PO SCH ×2 (07:30→22:23)
[2018-03-03] MEDS: potassium Cl oral solution 20 MEQ/15 ML PO SCH (07:30)
--- NOTE | 2018-03-03 12:00 | NUR ---
Pt work of breathing, RR and HR increased after moving pt up in bed. Very difficult for pt to recover. spoke with Dr. Otero stating he wishes pt to be comfort care. Dr. Otero to initiate these orders this afternoon. Pt started on clonidine patch for increased BP in relation to WOB.
--- NOTE | 2018-03-03 13:54 | NUR ---
Gave report to FASHION JOURNALISTLUIS ARMANDO Higgins
[2018-03-03] MEDS ORDERED: LORazepam 2 mg/ml vial IV PRN (15:00)
--- NOTE | 2018-03-03 15:01 | NUR ---
Pt transferred to PCU on 2L NC. Pt following commands during transfer and stable upon arrival. Family and Dr. Otero at bedside in PCU discussing possible comfort care. All belongings transferred with pt. Placed on tele 31 in CICU
--- NOTE | 2018-03-03 15:02 | NUR ---
MD meadows wants restraints off of the pt we are initiating comfort care but continuing current medication regimen. Sitter at bedside and I was present for the conversation the had with the agreeing to comfort care.
[2018-03-03] MEDS ORDERED: acetaminophen w/codeine (30MG) #3 tablet PO PRN (15:11)
--- NOTE | 2018-03-03 18:27 | NUR ---
Problems reprioritized. Patient report given, questions answered & plan of care reviewed with LUIS ARMANDO Luo.
--- NOTE | 2018-03-03 18:59 | NUR ---
Patient in room PCU 3023. I have received report from Luiza DURÁN and had the opportunity to ask questions and assume patient care. Patient is resting comfortably with daughter present.
[2018-03-03] MEDS: QUEtiapine 25mg tablet PO SCH (22:22)
[2018-03-03] MEDS: morphine 4 MG/ML inj SYRINge IV PRN (22:25)
--- NOTE | 2018-03-04 02:21 | NUR ---
Patient is sometimes interactive. She seems coherent at times, but during conversation, it becomes quickly evident that she is pleasantly confused. She has been looking up towards the ceiling and speaking softly to herself for much of the night. She gratefully accepts water when it is offered, but then only drinks a few sips and refuses more. Her posture is somewhat stiff and her eyes are wide - morphine was given once this shift. When asked how she was feeling, patient once smiled and replied, "I'm high on endorphins" and this was prior to the administration of morphine.
[2018-03-04] MEDS: methylPREDNISolone sod succ/PF 40mg inj. IV SCH ×3 (02:40→13:22)
[2018-03-04 03:00] VITALS: BP 134/78
[2018-03-04] MEDS: ipratropium/albuterol 3ml nebule NEB SCH ×6 (03:47→23:13)
[2018-03-04 05:24] LABS: BASOPHILS % (AUTO) 0.2 % (0-1); EOSINOPHILS # (AUTO) 0.2 X10'3 (0-0.9); EOSINOPHILS % (AUTO) 1.1 % (0-6); HEMATOCRIT 44.1 % (35.0-45.0); HEMOGLOBIN 14.7 g/dl (12.0-16.0); LYMPHOCYTES # (AUTO) 0.2 X10'3 (1.1-4.8); MEAN CORPUSCULAR HEMOGLOBIN 30.3 PG (27.0-31.0); MEAN CORPUSCULAR HGB CONC 33.3 % (33.0-36.5); MEAN CORPUSCULAR VOLUME 91.1 FL (78-98); MEAN PLATELET VOLUME 8.8 FL (7.4-10.4); MONOCYTES # (AUTO) 0.7 X10'3 (0-0.9); MONOCYTES % (AUTO) 3.3 % (2-12); NEUTROPHILS # (AUTO) 19.3 X10'3 (1.8-7.7); NEUTROPHILS % (AUTO) 94.4 % (42-75); PLATELET COUNT 368 X10'3 (140-440); RED BLOOD COUNT 4.84 X10'6 (4.20-5.60); RED CELL DISTRIBUTION WIDTH 15.4 % (11.5-14.5); WHITE BLOOD COUNT 20.4 X10'3 (4.5-11.0)
[2018-03-04 05:38] LABS: ALBUMIN 2.6 G/DL (3.4-5.0); ANION GAP 4 (8-16); BLOOD UREA NITROGEN 41 MG/DL (7-18); BUN/CREATININE RATIO 39.8 (6.6-38.0); CALCIUM 8.5 MG/DL (8.5-10.1); CHLORIDE 94 MMOL/L (99-107); CREATININE 1.03 MG/DL (0.40-0.90); GLUCOSE 171 MG/DL (70-104); PHOSPHORUS 3.6 MG/DL (2.3-4.5); POTASSIUM 4.6 MMOL/L (3.5-5.1); SODIUM 137 MMOL/L (135-145); eGFR 53 ML/MIN
[2018-03-04 06:00] VITALS: BP 115/82
--- NOTE | 2018-03-04 06:25 | NUR ---
Problems reprioritized. Patient report given, questions answered & plan of care reviewed with Luiza DURÁN.
[2018-03-04 06:31] LABS: METAMYLEOCYTES% (MANUAL) 0.5 % (0-0); MONOCYTES % (MANUAL) 1.5 % (2-12); TOTAL CELLS COUNTED 200
[2018-03-04 06:32] LABS: PLATELET ESTIMATE NORMAL
--- NOTE | 2018-03-04 06:51 | NUR ---
Patient in room PCU 3023. I have received report from LUIS ARMANDO hammonds and had the opportunity to ask questions and assume patient care.
[2018-03-04] MEDS: docusate sodium 100mg/10ml UD cup PO SCH (07:47)
[2018-03-04] MEDS: levoTHYROXINE 25mcg tablet PO SCH (07:48)
[2018-03-04] MEDS: potassium Cl oral solution 20 MEQ/15 ML PO SCH (07:48)
[2018-03-04] MEDS: lactobacillus rhamnosus 10,000 MMU CELLS/CAPSULE PO SCH (07:48)
[2018-03-04] MEDS: triamterene/HCTZ 37.5/25mg tablet PO SCH (07:48)
[2018-03-04] MEDS: famotidine 20mg tablet PO SCH (07:49)
[2018-03-04] MEDS: theophylline anhydrous 100mg ER capsule 24-hour PO SCH (07:49)
[2018-03-04] MEDS: enoxaparin 40mg/0.4ml syringe SUBCUT SCH (07:49)
[2018-03-04 11:00] VITALS: BP 163/87
--- NOTE | 2018-03-04 14:55 | NUR ---
Reassessment: Pt remains confused and has a sitter. Pt remains on pureed diet with thin liquids which pt is tolerating per HOPPER FEEDER however needs a feeder, noted that pt continues to refuse meals although documented PO intake 50% at lunch this afternoon. RN notes state patient's agreeable to comfort care however code status remains DNR. LBM 03/02. Will continue to follow and make recommendations as appropriate. Recommend: 1. Continue pureed diet with thin liquid per HOPPER FEEDER recs 2. Monitor need for ONS 3. Monitor change in code status 4. Wt per rx Addendum: 03/04/18 at [address] Amended: Links added.
[2018-03-04 15:00] VITALS: BP 139/101
[2018-03-04] MEDS ORDERED: MIDAZolam 5mg/ml 2ml vial IV PRN (17:15)
--- NOTE | 2018-03-04 18:25 | NUR ---
Patient in room U 3023. I have received report from LUIS ARMANDO Higgins and had the opportunity to ask questions and assume patient care. Addendum: 03/04/18 at 1851 by Sosa Wilson RN Amended: Links added.
[2018-03-04 18:30] VITALS: BP 133/79
--- NOTE | 2018-03-04 18:34 | NUR ---
Problems reprioritized. Patient report given, questions answered & plan of care reviewed with LUIS ARMANDO Negro.
[2018-03-04] MEDS: QUEtiapine 25mg tablet PO SCH (22:43)
[2018-03-04] MEDS: morphine 4 MG/ML inj SYRINge IV PRN (22:47)
[2018-03-05] MEDS: ipratropium/albuterol 3ml nebule NEB SCH ×6 (02:47→22:51)
[2018-03-05 06:00] VITALS: BP 137/62
--- NOTE | 2018-03-05 06:47 | NUR ---
Patient in room PCU 3023. I have received report from JAGUAR DURÁN and had the opportunity to ask questions and assume patient care.
--- NOTE | 2018-03-05 06:49 | NUR ---
Problems reprioritized. Patient report given, questions answered & plan of care reviewed with RN. Addendum: 03/05/18 at 0650 by Sosa Wilson RN Amended: Links added.
[2018-03-05 10:47] LABS: BASOPHILS % (AUTO) 0.2 % (0-1); EOSINOPHILS # (AUTO) 0.1 X10'3 (0-0.9); EOSINOPHILS % (AUTO) 0.3 % (0-6); HEMATOCRIT 46.9 % (35.0-45.0); HEMOGLOBIN 15.7 g/dl (12.0-16.0); LYMPHOCYTES # (AUTO) 1.3 X10'3 (1.1-4.8); LYMPHOCYTES % (AUTO) 5.2 % (21-51); MEAN CORPUSCULAR HEMOGLOBIN 30.8 PG (27.0-31.0); MEAN CORPUSCULAR HGB CONC 33.5 % (33.0-36.5); MEAN CORPUSCULAR VOLUME 91.8 FL (78-98); MEAN PLATELET VOLUME 8.3 FL (7.4-10.4); MONOCYTES # (AUTO) 0.9 X10'3 (0-0.9); MONOCYTES % (AUTO) 3.7 % (2-12); NEUTROPHILS % (AUTO) 90.6 % (42-75); PLATELET COUNT 348 X10'3 (140-440); RED BLOOD COUNT 5.11 X10'6 (4.20-5.60); RED CELL DISTRIBUTION WIDTH 15.4 % (11.5-14.5); WHITE BLOOD COUNT 24.3 X10'3 (4.5-11.0)
--- NOTE | 2018-03-05 10:54 | NUR ---
Called Dr. Jameson-states he's in rounds and this nurse stated, " I can talk to you later, it's non emergent."
[2018-03-05 11:12] LABS: ALBUMIN 3.1 G/DL (3.4-5.0); ANION GAP 6 (8-16); BLOOD UREA NITROGEN 29 MG/DL (7-18); BUN/CREATININE RATIO 29.3 (6.6-38.0); CHLORIDE 93 MMOL/L (99-107); CREATININE 0.99 MG/DL (0.40-0.90); GLUCOSE 139 MG/DL (70-104); POTASSIUM 4.2 MMOL/L (3.5-5.1); SODIUM 137 MMOL/L (135-145); TOTAL CARBON DIOXIDE 38.2 MMOL/L (24-32); eGFR 55 ML/MIN
--- NOTE | 2018-03-05 11:45 | NUR ---
Noted Dr. Jameson on unit. Informed him that patient has woken up and is doing better, wishes to have comfort care removed and wants to know when she can come home. Dr. Jameson was on his way to intubate another patient and states he'll can't see her now but he will visit her later.
--- NOTE | 2018-03-05 14:40 | NUR ---
Called Dr. Jameson to make aware of current breathing status, and to further state that wishes for medical staff to treat her. Wishes for her to come home. states he will come see her once he's completed with current patient.
--- NOTE | 2018-03-05 15:15 | NUR ---
Spoke to Dr. Trino seaman: patient, states family wishes to make patient full code, received orders for lasix 40 mg x1 IVP and solumedrol 60 mg x1 IVP.
[2018-03-05] MEDS ORDERED: furosemide 40mg/4ml inj IV ONE (15:30)
[2018-03-05] MEDS ORDERED: methylPREDNISolone sod succ 125mg/2ml vial IV ONE (15:30)
[2018-03-05 18:00] VITALS: BP 118/76
[2018-03-05] MEDS ORDERED: MIDAZolam 5mg/ml 2ml vial IV PRN (18:05)
[2018-03-05] MEDS ORDERED: morphine 4 MG/ML inj SYRINge IV PRN (18:05)
[2018-03-05] MEDS: methylPREDNISolone sod succ 125mg/2ml vial IV SCH (18:36)
[2018-03-05] MEDS: levoFLOXACIN 500mg tablet PO SCH (20:10)
[2018-03-05] MEDS: QUEtiapine 25mg tablet PO SCH (20:11)
[2018-03-05 23:00] VITALS: BP 88/56
--- NOTE | 2018-03-05 23:29 | NUR ---
Called Agusto Menard, re: low BP of 88/56 (69). Received orders for 500 cc 5% Albumin. Addendum: 03/05/18 at 2342 by Kymberly Lopez RN to maintain MAP of 65 >
[2018-03-05] MEDS ORDERED: albumin (Human) 5% 250ml 250 ML IV ONE (23:35)
[2018-03-06] MEDS: albumin (Human) 5% 250ml 250 ML IV SCH ×2 (00:09→01:20)
--- NOTE | 2018-03-06 00:20 | NUR ---
Problems reprioritized. Patient report given, questions answered & plan of care reviewed with MICHELLE DURÁN.
--- NOTE | 2018-03-06 00:33 | NUR ---
Patient in room PCU 3023. I have received report from LUIS ARMANDO Traylor and had the opportunity to ask questions and assume patient care.
[2018-03-06] MEDS: methylPREDNISolone sod succ 125mg/2ml vial IV SCH ×4 (01:19→20:30)
[2018-03-06 03:00] VITALS: BP 101/57
[2018-03-06] MEDS: ipratropium/albuterol 3ml nebule NEB SCH ×6 (03:19→22:51)
[2018-03-06 06:00] VITALS: BP 107/65
[2018-03-06 07:21] LABS: BASOPHILS % (AUTO) 0 % (0-1); EOSINOPHILS # (AUTO) 0.1 X10'3 (0-0.9); EOSINOPHILS % (AUTO) 0.8 % (0-6); HEMATOCRIT 36.3 % (35.0-45.0); HEMOGLOBIN 12.2 g/dl (12.0-16.0); LYMPHOCYTES # (AUTO) 0.2 X10'3 (1.1-4.8); LYMPHOCYTES % (AUTO) 1.5 % (21-51); MEAN CORPUSCULAR HEMOGLOBIN 30.7 PG (27.0-31.0); MEAN CORPUSCULAR HGB CONC 33.6 % (33.0-36.5); MEAN CORPUSCULAR VOLUME 91.6 FL (78-98); MEAN PLATELET VOLUME 8.4 FL (7.4-10.4); MONOCYTES # (AUTO) 0.3 X10'3 (0-0.9); MONOCYTES % (AUTO) 1.6 % (2-12); NEUTROPHILS # (AUTO) 16.1 X10'3 (1.8-7.7); NEUTROPHILS % (AUTO) 96.1 % (42-75); PLATELET COUNT 251 X10'3 (140-440); RED BLOOD COUNT 3.96 X10'6 (4.20-5.60); RED CELL DISTRIBUTION WIDTH 15.7 % (11.5-14.5); WHITE BLOOD COUNT 16.7 X10'3 (4.5-11.0)
--- NOTE | 2018-03-06 07:40 | NUR ---
Page to Respiratory: 0699Y pt Pan has active order for AB. Thank you.
[2018-03-06 07:51] LABS: ALBUMIN 2.9 G/DL (3.4-5.0); ANION GAP 1 (8-16); BLOOD UREA NITROGEN 26 MG/DL (7-18); CALCIUM 8.1 MG/DL (8.5-10.1); CHLORIDE 95 MMOL/L (99-107); CREATININE 0.93 MG/DL (0.40-0.90); GLUCOSE 151 MG/DL (70-104); MAGNESIUM 1.8 MG/DL (1.5-2.4); PHOSPHORUS 3.7 MG/DL (2.3-4.5); POTASSIUM 3.3 MMOL/L (3.5-5.1); SODIUM 141 MMOL/L (135-145); eGFR 60 ML/MIN
[2018-03-06 08:00] LABS: TOTAL CARBON DIOXIDE 45.3 MMOL/L (24-32)
[2018-03-06] MEDS: theophylline anhydrous 100mg ER capsule 24-hour PO SCH (08:00)
[2018-03-06] MEDS: furosemide 40mg tablet PO SCH (08:20)
[2018-03-06] MEDS: levoTHYROXINE 25mcg tablet PO SCH (08:20)
[2018-03-06 09:35] LABS: ABG BASE EXCESS 19.8 mmol/L (-2.0-3.0); ABG HCO3 45.7 mmol/L (22.0-26.0); ABG OXYGEN SATURATION 92.8 % (95-98); ABG PCO2 (T) 55.6 mmHg (32.0-45.0); ABG PH (T) 7.533 (7.350-7.450); ABG PO2 (T) 59.5 mmHg (83-108); ALLEN'S TEST Positive; FCOHb 0.4 % (0.5-1.5); FLOW 2 L/min; FMetHb 0.2 % (0.3-1.12); FO2Hb 92.2 % (94-100); TOTAL HEMOGLOBIN 13.8 G/dl (12.0-16.0)
--- NOTE | 2018-03-06 10:44 | NUR ---
Page to Radiology: Pt. 5474Z has Stat order for Chest Xray. Thank you
[2018-03-06 11:00] VITALS: BP 116/69
[2018-03-06] MEDS ORDERED: acetaZOLAMIDE IV 500mg inj IV ONE (11:20)
[2018-03-06] MEDS: levoFLOXACIN 500mg tablet PO SCH (12:10)
[2018-03-06 16:30] VITALS: BP 106/64
[2018-03-06 18:00] VITALS: BP 111/66
[2018-03-06] MEDS: STIOLTO RESPIMAT IH SCH (18:12)
--- NOTE | 2018-03-06 18:14 | NUR ---
Problems reprioritized. Patient report given, questions answered & plan of care reviewed with Erlinda DURÁN.
--- NOTE | 2018-03-06 18:14 | NUR ---
Patient in room PCU 3023A. I have received report from LUIS ARMANDO GALVAN and had the opportunity to ask questions and assume patient care.
--- NOTE | 2018-03-06 18:32 | NUR ---
Orientee documentation: I have reviewed and agree with all interventions, assessments performed and documented by LUIS ARMANDO Valdes. Orientee Medication Administration: For this medication-pass time frame, all medication were reviewed, dispensed, administered and documented per hospital policy by LUIS ARMANDO Valdes
[2018-03-06] MEDS: potassium Cl oral solution 20 MEQ/15 ML PO PRN ×2 (18:53→23:03)
[2018-03-06] MEDS: QUEtiapine 25mg tablet PO SCH (20:30)
[2018-03-06] MEDS: lactobacillus rhamnosus 10,000 MMU CELLS/CAPSULE PO SCH (20:30)
[2018-03-06 22:00] VITALS: BP 115/66
[2018-03-07 02:00] VITALS: BP 113/68
[2018-03-07] MEDS: potassium Cl oral solution 20 MEQ/15 ML PO PRN (02:33)
[2018-03-07] MEDS: methylPREDNISolone sod succ 125mg/2ml vial IV SCH ×2 (02:33→08:00)
[2018-03-07] MEDS: ipratropium/albuterol 3ml nebule NEB SCH ×3 (03:15→11:00)
[2018-03-07 06:00] VITALS: BP 107/64
[2018-03-07 06:05] LABS: HEMOGLOBIN 13.1 g/dl (12.0-16.0); MEAN CORPUSCULAR HEMOGLOBIN 30.8 PG (27.0-31.0); MEAN CORPUSCULAR HGB CONC 33.5 % (33.0-36.5); MEAN CORPUSCULAR VOLUME 91.8 FL (78-98); MEAN PLATELET VOLUME 8.5 FL (7.4-10.4); PLATELET COUNT 266 X10'3 (140-440); RED BLOOD COUNT 4.25 X10'6 (4.20-5.60); RED CELL DISTRIBUTION WIDTH 15.5 % (11.5-14.5)
[2018-03-07 06:18] LABS: ALBUMIN 2.8 G/DL (3.4-5.0); ANION GAP 4 (8-16); BLOOD UREA NITROGEN 24 MG/DL (7-18); CALCIUM 8.4 MG/DL (8.5-10.1); CHLORIDE 98 MMOL/L (99-107); GLUCOSE 178 MG/DL (70-104); MAGNESIUM 1.7 MG/DL (1.5-2.4); PHOSPHORUS 3.2 MG/DL (2.3-4.5); SODIUM 140 MMOL/L (135-145); TOTAL CARBON DIOXIDE 38.4 MMOL/L (24-32); eGFR 55 ML/MIN
[2018-03-07 06:26] LABS: WHITE BLOOD COUNT 27.3 X10'3 (4.5-11.0)
--- NOTE | 2018-03-07 06:26 | NUR ---
Problems reprioritized. Patient report given, questions answered & plan of care reviewed with LUIS ARMANDO GALVAN.
--- NOTE | 2018-03-07 06:29 | NUR ---
Patient in room PCU 3027. I have received report from LUIS ARMANDO Coffey and had the opportunity to ask questions and assume patient care.
[2018-03-07 07:01] LABS: PLATELET ESTIMATE NORMAL; TOTAL CELLS COUNTED 100
[2018-03-07 07:02] LABS: ANISOCYTOSIS 1+; TOXIC GRANULATION 2+
[2018-03-07] MEDS: levoTHYROXINE 25mcg tablet PO SCH (07:58)
[2018-03-07] MEDS: lactobacillus rhamnosus 10,000 MMU CELLS/CAPSULE PO SCH ×2 (07:58→21:49)
[2018-03-07] MEDS: furosemide 40mg tablet PO SCH (07:58)
[2018-03-07] MEDS: theophylline anhydrous 100mg ER capsule 24-hour PO SCH (08:00)
[2018-03-07] MEDS: STIOLTO RESPIMAT IH SCH (08:08)
[2018-03-07] MEDS ORDERED: potassium Cl 20 mEq SR tablet PO STA (10:09)
[2018-03-07] MEDS: levoFLOXACIN 500mg tablet PO SCH (10:31)
[2018-03-07 11:00] VITALS: BP 114/66
--- NOTE | 2018-03-07 11:20 | NUR ---
Page to Respiratory: 0751F has active order for stat ABG. Thank you.
[2018-03-07 11:46] LABS: ABG BASE EXCESS 11.3 mmol/L (-2.0-3.0); ABG HCO3 35.5 mmol/L (22.0-26.0); ABG OXYGEN SATURATION 92.8 % (95-98); ABG PCO2 (T) 44.5 mmHg (32.0-45.0); ABG PO2 (T) 61.1 mmHg (83-108); ALLEN'S TEST Positive; FCOHb 0.7 % (0.5-1.5); FLOW 2 L/min; FMetHb 0.3 % (0.3-1.12); FO2Hb 91.9 % (94-100); RESPIRATORY RATE (OBSERVED) 16 b/min; TOTAL HEMOGLOBIN 14.5 G/dl (12.0-16.0)
[2018-03-07] MEDS ORDERED: diphenhydrAMINE 25mg capsule PO PRN (12:25)
[2018-03-07] MEDS: predniSONE 20 mg tablet PO SCH (12:46)
--- NOTE | 2018-03-07 13:38 | NUR ---
reassessment: Pt PO increased to 25-50% meals w/ feeder; previously refusing. Advanced to full code and no longer comfort care per RN. Delirium remains w/ intermittent IV Versed pushes per MD note. LBM 03/02 but also refusing meals past 4 days w/ no GI symptoms noted.. Receiving electrolyte replacement per protocol. Given severe weakness in addition to 0-25%/refusing meals past 9 days pt qualifies for severe malnutrition at this time; MD notified. Ensure Enlive TIDWM added for additional needs. Will continue to monitor for changes in code status and additional bowel care needs. Recommend: 1. Continue pureed diet with thin liquid per MANAGER FLOOR recs 2. Ensure Enlive TIDWM 3. Monitor change in code status 4. Routine bowel care 5. Wt per rx Addendum: 03/07/18 at [address] Amended: Links added.
[2018-03-07 15:00] VITALS: BP 103/67
[2018-03-07] MEDS: lactose-reduced food (Ensure Enlive) - 237ml bottle PO SCH (18:00)
--- NOTE | 2018-03-07 18:00 | NUR ---
Patient in room PCU 3027. I have received report from Mallika DURÁN and had the opportunity to ask questions and assume patient care. Pt is currently awake and sitting in bed with at the bedside. Per report she was very paranoid with care and refused some meds. Discussed POC with and pt. No other concerns at this time.
--- NOTE | 2018-03-07 18:22 | NUR ---
Problems reprioritized. Patient report given, questions answered & plan of care reviewed with LUIS ARMANDO Huffman.
[2018-03-07 19:00] VITALS: BP 108/63
--- NOTE | 2018-03-07 19:30 | NUR ---
Pt has very flat affect. Delayed responses to questions.
--- NOTE | 2018-03-07 19:49 | NUR ---
Called Agusto Menard regarding pt's critical K from AM draws. Per report she was too paranoid to take PO replacement, but she was able to take 1 dose of K-Dur. It was a one time order. Agusto has ordered IV K+ replacement per protocol since she seems too paranoid to take anything PO.
[2018-03-07] MEDS ORDERED: potassium Cl 40MEQ/NS 500ml 500 ML IV PRN (19:50)
[2018-03-07] MEDS ORDERED: methylPREDNISolone sod succ 125mg/2ml vial IV SCH (20:00)
[2018-03-07] MEDS: ipratropium/albuterol 3ml nebule NEB PRN (20:51)
[2018-03-07] MEDS: potassium Cl 40MEQ/NS 500ml 500 ML IV PRN (21:45)
[2018-03-07] MEDS: Melatonin 3mg tablet PO SCH (21:49)
[2018-03-07 23:00] VITALS: BP 120/72
[2018-03-08 03:00] VITALS: BP 119/72
--- NOTE | 2018-03-08 03:00 | NUR ---
Pt went from flat affect to upset and cursing. She calmed down after a few moments alone and returned to being pleasant when I returned to do her labs.
[2018-03-08 04:19] LABS: BASOPHILS % (AUTO) 0 % (0-1); EOSINOPHILS # (AUTO) 0.6 X10'3 (0-0.9); EOSINOPHILS % (AUTO) 1.8 % (0-6); HEMATOCRIT 42.8 % (35.0-45.0); HEMOGLOBIN 14.3 g/dl (12.0-16.0); LYMPHOCYTES # (AUTO) 0.4 X10'3 (1.1-4.8); LYMPHOCYTES % (AUTO) 1.1 % (21-51); MEAN CORPUSCULAR HEMOGLOBIN 30.6 PG (27.0-31.0); MEAN CORPUSCULAR HGB CONC 33.4 % (33.0-36.5); MEAN CORPUSCULAR VOLUME 91.6 FL (78-98); MEAN PLATELET VOLUME 8.9 FL (7.4-10.4); MONOCYTES # (AUTO) 0.9 X10'3 (0-0.9); MONOCYTES % (AUTO) 2.7 % (2-12); NEUTROPHILS # (AUTO) 32.4 X10'3 (1.8-7.7); NEUTROPHILS % (AUTO) 94.4 % (42-75); PLATELET COUNT 291 X10'3 (140-440); RED BLOOD COUNT 4.67 X10'6 (4.20-5.60); RED CELL DISTRIBUTION WIDTH 15.8 % (11.5-14.5)
[2018-03-08 04:25] LABS: ALBUMIN 2.7 G/DL (3.4-5.0); ANION GAP 5 (8-16); BLOOD UREA NITROGEN 35 MG/DL (7-18); BUN/CREATININE RATIO 33.3 (6.6-38.0); CALCIUM 8.6 MG/DL (8.5-10.1); CHLORIDE 100 MMOL/L (99-107); CREATININE 1.05 MG/DL (0.40-0.90); GLUCOSE 176 MG/DL (70-104); MAGNESIUM 1.7 MG/DL (1.5-2.4); PHOSPHORUS 3.2 MG/DL (2.3-4.5); POTASSIUM 3.5 MMOL/L (3.5-5.1); SODIUM 141 MMOL/L (135-145); TOTAL CARBON DIOXIDE 36.3 MMOL/L (24-32); WHITE BLOOD COUNT 34.3 X10'3 (4.5-11.0); eGFR 52 ML/MIN
--- NOTE | 2018-03-08 04:35 | NUR ---
Called Agusto Menard regarding critical WBC of 34.3 this AM. Pt had Solu Medrol DCd 03/07, but just started on prednisone. She is also starting Zithromax this AM as well. Per Agusto: Pt's numbers will probably continue to climb over the next few days until her liver can process all of these meds.
[2018-03-08 05:40] LABS: ANISOCYTOSIS 1+; PLATELET ESTIMATE NORMAL; TOTAL CELLS COUNTED 100
[2018-03-08 05:41] LABS: TOXIC GRANULATION 2+
[2018-03-08 05:42] LABS: TOXIC VACUOLATION 1+
--- NOTE | 2018-03-08 06:15 | NUR ---
Patient in room PCU 3027. I have received report from Maria Luz DURÁN and had the opportunity to ask questions and assume patient care.
--- NOTE | 2018-03-08 06:22 | NUR ---
Problems reprioritized. Patient report given, questions answered & plan of care reviewed with LUIS ARMANDO Brown.
[2018-03-08 07:00] VITALS: BP 120/71
[2018-03-08] MEDS: STIOLTO RESPIMAT IH SCH (08:00)
[2018-03-08] MEDS: furosemide 40mg tablet PO SCH (08:46)
[2018-03-08] MEDS: predniSONE 20 mg tablet PO SCH (08:47)
[2018-03-08] MEDS: azithromycin 250mg tablet PO SCH (08:47)
[2018-03-08] MEDS: lactobacillus rhamnosus 10,000 MMU CELLS/CAPSULE PO SCH ×2 (08:47→20:35)
[2018-03-08] MEDS: theophylline anhydrous 100mg ER capsule 24-hour PO SCH (08:49)
[2018-03-08] MEDS: lactose-reduced food (Ensure Enlive) - 237ml bottle PO SCH ×3 (08:55→18:00)
[2018-03-08] MEDS: levoTHYROXINE 25mcg tablet PO SCH (08:58)
[2018-03-08 11:00] VITALS: BP 108/71
[2018-03-08 15:00] VITALS: BP 112/75
--- NOTE | 2018-03-08 18:00 | NUR ---
Patient in room PCU 3027. I have received report from Riky DURÁN and had the opportunity to ask questions and assume patient care.
--- NOTE | 2018-03-08 18:38 | NUR ---
Problems reprioritized. Patient report given, questions answered & plan of care reviewed with Maria Luz DURÁN.
[2018-03-08 19:00] VITALS: BP 126/73
[2018-03-08] MEDS: Melatonin 3mg tablet PO SCH (20:35)
[2018-03-08 23:00] VITALS: BP 118/67
[2018-03-09 03:00] VITALS: BP 112/71
[2018-03-09 04:03] LABS: BASOPHILS # (AUTO) 0.1 X10'3 (0-0.2); BASOPHILS % (AUTO) 0.3 % (0-1); EOSINOPHILS % (AUTO) 0.1 % (0-6); HEMATOCRIT 42.8 % (35.0-45.0); HEMOGLOBIN 14.3 g/dl (12.0-16.0); LYMPHOCYTES # (AUTO) 0.9 X10'3 (1.1-4.8); LYMPHOCYTES % (AUTO) 3.1 % (21-51); MEAN CORPUSCULAR HEMOGLOBIN 30.5 PG (27.0-31.0); MEAN CORPUSCULAR HGB CONC 33.4 % (33.0-36.5); MEAN CORPUSCULAR VOLUME 91.5 FL (78-98); MEAN PLATELET VOLUME 8.4 FL (7.4-10.4); MONOCYTES # (AUTO) 0.7 X10'3 (0-0.9); MONOCYTES % (AUTO) 2.4 % (2-12); NEUTROPHILS # (AUTO) 26.7 X10'3 (1.8-7.7); NEUTROPHILS % (AUTO) 94.1 % (42-75); PLATELET COUNT 252 X10'3 (140-440); RED BLOOD COUNT 4.68 X10'6 (4.20-5.60); RED CELL DISTRIBUTION WIDTH 15.7 % (11.5-14.5)
[2018-03-09 04:20] LABS: ALBUMIN 2.7 G/DL (3.4-5.0); ANION GAP 4 (8-16); BLOOD UREA NITROGEN 35 MG/DL (7-18); BUN/CREATININE RATIO 39.8 (6.6-38.0); CALCIUM 8.5 MG/DL (8.5-10.1); CHLORIDE 100 MMOL/L (99-107); CREATININE 0.88 MG/DL (0.40-0.90); GLUCOSE 124 MG/DL (70-104); MAGNESIUM 1.8 MG/DL (1.5-2.4); PHOSPHORUS 2.7 MG/DL (2.3-4.5); SODIUM 143 MMOL/L (135-145); TOTAL CARBON DIOXIDE 38.6 MMOL/L (24-32); eGFR 64 ML/MIN
[2018-03-09 04:22] LABS: POTASSIUM 2.8 MMOL/L (3.5-5.1)
[2018-03-09 04:26] LABS: WHITE BLOOD COUNT 28.4 X10'3 (4.5-11.0)
[2018-03-09] MEDS: potassium Cl 40MEQ/NS 500ml 500 ML IV PRN ×2 (04:38→11:59)
[2018-03-09 04:50] LABS: TOTAL CELLS COUNTED 100
[2018-03-09 04:51] LABS: ANISOCYTOSIS 1+; PLATELET ESTIMATE NORMAL; TOXIC GRANULATION 2+; TOXIC VACUOLATION 1+
--- NOTE | 2018-03-09 06:16 | NUR ---
Problems reprioritized. Patient report given, questions answered & plan of care reviewed with Riky DURÁN.
--- NOTE | 2018-03-09 06:18 | NUR ---
Patient in room PCU 3027. I have received report from Maria Luz DURÁN and had the opportunity to ask questions and assume patient care.
[2018-03-09 07:00] VITALS: BP 105/74
[2018-03-09] MEDS: furosemide 40mg tablet PO SCH (08:04)
[2018-03-09] MEDS: azithromycin 250mg tablet PO SCH (08:04)
[2018-03-09] MEDS: lactobacillus rhamnosus 10,000 MMU CELLS/CAPSULE PO SCH ×2 (08:04→21:21)
[2018-03-09] MEDS: levoTHYROXINE 25mcg tablet PO SCH (08:05)
[2018-03-09] MEDS: predniSONE 20 mg tablet PO SCH (08:06)
[2018-03-09] MEDS: lactose-reduced food (Ensure Enlive) - 237ml bottle PO SCH ×2 (08:07→13:00)
[2018-03-09] MEDS: theophylline anhydrous 100mg ER capsule 24-hour PO SCH (08:54)
[2018-03-09 11:00] VITALS: BP 94/68
--- NOTE | 2018-03-09 11:35 | NUR ---
Paged RT. Paged RT requesting Stioltol Respimat administration.
[2018-03-09] MEDS: STIOLTO RESPIMAT IH SCH (11:39)
[2018-03-09] MEDS: ipratropium/albuterol 3ml nebule NEB PRN (11:44)
--- NOTE | 2018-03-09 14:00 | NUR ---
reassessment: Pt PO 25% avg mechanical soft/ground meats w/ ensure enlive TIDWM. PO fluctuates w/ delirium but delirium has improved per MD note. K 2.8 on lasix receiving replacement per protocol. LBM 03/07. Will continue to monitor. Recommend: 1. Continue mechanical soft/ground diet with thin liquid per MECHANIC WELDER recs 2. Ensure Enlive TIDWM 3. Monitor change in code status 4. Routine bowel care 5. Wt per rx Addendum: 03/09/18 at [address] Amended: Links added.
[2018-03-09 15:00] VITALS: BP 112/78
--- NOTE | 2018-03-09 18:30 | NUR ---
Patient in room PCU 3027. I have received report from Riky DURÁN and had the opportunity to ask questions and assume patient care. Pt is currently in bed. has left for the night. Pt still has flat affect. Redraw in place for K replacement.
--- NOTE | 2018-03-09 18:50 | NUR ---
Problems reprioritized. Patient report given, questions answered & plan of care reviewed with Maria Luz DURÁN.
[2018-03-09 19:00] VITALS: BP 120/75
[2018-03-09] MEDS: Melatonin 3mg tablet PO SCH (21:20)
[2018-03-09 23:00] VITALS: BP 119/77
[2018-03-10 03:00] VITALS: BP 140/78
[2018-03-10 05:49] LABS: BASOPHILS # (AUTO) 0.1 X10'3 (0-0.2); BASOPHILS % (AUTO) 0.5 % (0-1); EOSINOPHILS # (AUTO) 0.4 X10'3 (0-0.9); EOSINOPHILS % (AUTO) 1.7 % (0-6); HEMOGLOBIN 14.4 g/dl (12.0-16.0); LYMPHOCYTES # (AUTO) 1.1 X10'3 (1.1-4.8); LYMPHOCYTES % (AUTO) 4.2 % (21-51); MEAN CORPUSCULAR HEMOGLOBIN 30.6 PG (27.0-31.0); MEAN CORPUSCULAR HGB CONC 33.6 % (33.0-36.5); MEAN CORPUSCULAR VOLUME 91.2 FL (78-98); MEAN PLATELET VOLUME 8.5 FL (7.4-10.4); MONOCYTES # (AUTO) 0.6 X10'3 (0-0.9); MONOCYTES % (AUTO) 2.4 % (2-12); NEUTROPHILS # (AUTO) 24.1 X10'3 (1.8-7.7); NEUTROPHILS % (AUTO) 91.2 % (42-75); PLATELET COUNT 216 X10'3 (140-440); RED BLOOD COUNT 4.72 X10'6 (4.20-5.60); RED CELL DISTRIBUTION WIDTH 15.7 % (11.5-14.5)
[2018-03-10 06:03] LABS: ALBUMIN 2.6 G/DL (3.4-5.0); ANION GAP 3 (8-16); BLOOD UREA NITROGEN 31 MG/DL (7-18); BUN/CREATININE RATIO 41.3 (6.6-38.0); CALCIUM 8.4 MG/DL (8.5-10.1); CHLORIDE 100 MMOL/L (99-107); CREATININE 0.75 MG/DL (0.40-0.90); GLUCOSE 103 MG/DL (70-104); MAGNESIUM 1.7 MG/DL (1.5-2.4); PHOSPHORUS 2.6 MG/DL (2.3-4.5); SODIUM 142 MMOL/L (135-145); TOTAL CARBON DIOXIDE 39.3 MMOL/L (24-32); eGFR 76 ML/MIN
--- NOTE | 2018-03-10 06:15 | NUR ---
Problems reprioritized. Patient report given, questions answered & plan of care reviewed with Fabby DURÁN.
[2018-03-10 06:32] LABS: POTASSIUM 2.9 MMOL/L (3.5-5.1); WHITE BLOOD COUNT 26.4 X10'3 (4.5-11.0)
--- NOTE | 2018-03-10 06:34 | NUR ---
Patient in room PCU 3027. I have received report from LUIS ARMANDO Huffman and had the opportunity to ask questions and assume patient care.
--- NOTE | 2018-03-10 06:35 | NUR ---
Notified cad cam programmer Agusto Menard NP of critical K 2.9 & WBC 26.4. Will replace K per protocol.
[2018-03-10 06:54] LABS: TOTAL CELLS COUNTED 100
[2018-03-10 06:55] LABS: ANISOCYTOSIS 1+; PLATELET ESTIMATE NORMAL; TOXIC GRANULATION 1+; TOXIC VACUOLATION 1+
[2018-03-10 07:00] VITALS: BP 123/81
[2018-03-10] MEDS: levoTHYROXINE 25mcg tablet PO SCH (07:29)
[2018-03-10] MEDS: azithromycin 250mg tablet PO SCH (07:29)
[2018-03-10] MEDS: furosemide 40mg tablet PO SCH (07:29)
[2018-03-10] MEDS: predniSONE 20 mg tablet PO SCH (07:29)
[2018-03-10] MEDS: theophylline anhydrous 100mg ER capsule 24-hour PO SCH (07:29)
[2018-03-10] MEDS: lactobacillus rhamnosus 10,000 MMU CELLS/CAPSULE PO SCH ×2 (07:29→19:38)
[2018-03-10] MEDS: lactose-reduced food (Ensure Enlive) - 237ml bottle PO SCH ×4 (08:00→18:00)
[2018-03-10] MEDS: STIOLTO RESPIMAT IH SCH (08:59)
[2018-03-10] MEDS: potassium Cl 40MEQ/NS 500ml 500 ML IV PRN ×2 (09:42→14:33)
[2018-03-10 11:00] VITALS: BP 116/82
[2018-03-10 15:00] VITALS: BP 112/72
--- NOTE | 2018-03-10 18:32 | NUR ---
Problems reprioritized. Patient report given, questions answered & plan of care reviewed with LUIS ARMANDO Huffman.
--- NOTE | 2018-03-10 18:56 | NUR ---
Patient in room PCU 3027. I have received report from Fabby DURÁN and had the opportunity to ask questions and assume patient care. Pt is laying comfortably in bed with family at the bedside. No signs of distress at this time. Per pt her vitals showed an O2 sat of 82 on 2L. I just rechecked and she is satting 96 on 2L. Her fingers are very cold, I think this affected an accurate reading. She is requesting a breathing Tx at this time. She has them avail PRN. I will talk to RT about this.
[2018-03-10 19:00] VITALS: BP 126/71
[2018-03-10] MEDS ORDERED: polyethylene glycol 3350 17gm powd pack PO ONE (19:30)
[2018-03-10] MEDS: Melatonin 3mg tablet PO SCH (20:52)
[2018-03-10 23:00] VITALS: BP 121/73
[2018-03-11 03:00] VITALS: BP 126/68
--- NOTE | 2018-03-11 04:34 | NUR ---
Pt much more alert and able to reposition herself this evening. I walked in to her fully undressed and complaining of being hot, despite having cool skin. Full bed changes have been done twice on this shift. Pt keeps pulling wick catheter out despite reorientation.
--- NOTE | 2018-03-11 04:35 | NUR ---
ONE LUMEN ON PICC IS NOT FLUSHING. DAY SHIFT REPORTED THAT A MALE PART OF SOME OTHER LUER LOCK BROKE OFF INTO THE FEMALE PART OF THE HUB. HUB WAS CHANGED OUT AND LINE WOULD STILL NOT DRAW. DID NOT WANT TO RISK PUSHING A CLOT. LEFT A STICKER SAYING "DO NOT USE" PT IS MEANT TO GO TO [facility] TODAY.
[2018-03-11 05:29] LABS: BASOPHILS % (AUTO) 0.1 % (0-1); EOSINOPHILS % (AUTO) 0 % (0-6); HEMATOCRIT 39.5 % (35.0-45.0); HEMOGLOBIN 13.1 g/dl (12.0-16.0); LYMPHOCYTES % (AUTO) 4.1 % (21-51); MEAN CORPUSCULAR HEMOGLOBIN 30.6 PG (27.0-31.0); MEAN CORPUSCULAR HGB CONC 33.1 % (33.0-36.5); MEAN CORPUSCULAR VOLUME 92.5 FL (78-98); MEAN PLATELET VOLUME 9.4 FL (7.4-10.4); MONOCYTES # (AUTO) 0.7 X10'3 (0-0.9); MONOCYTES % (AUTO) 3.1 % (2-12); NEUTROPHILS # (AUTO) 22.1 X10'3 (1.8-7.7); NEUTROPHILS % (AUTO) 92.7 % (42-75); PLATELET COUNT 187 X10'3 (140-440); RED BLOOD COUNT 4.27 X10'6 (4.20-5.60); RED CELL DISTRIBUTION WIDTH 15.8 % (11.5-14.5); WHITE BLOOD COUNT 23.8 X10'3 (4.5-11.0)
[2018-03-11 05:49] LABS: ALBUMIN 2.7 G/DL (3.4-5.0); ANION GAP 4 (8-16); BLOOD UREA NITROGEN 28 MG/DL (7-18); CALCIUM 8.4 MG/DL (8.5-10.1); CHLORIDE 100 MMOL/L (99-107); GLUCOSE 97 MG/DL (70-104); MAGNESIUM 1.7 MG/DL (1.5-2.4); PHOSPHORUS 2.5 MG/DL (2.3-4.5); POTASSIUM 3.4 MMOL/L (3.5-5.1); SODIUM 142 MMOL/L (135-145); TOTAL CARBON DIOXIDE 38.4 MMOL/L (24-32); eGFR 83 ML/MIN
[2018-03-11 06:00] VITALS: BP 114/62
--- NOTE | 2018-03-11 07:01 | NUR ---
Problems reprioritized. Patient report given, questions answered & plan of care reviewed with Eladia DURÁN.
[2018-03-11] MEDS: theophylline anhydrous 100mg ER capsule 24-hour PO SCH (08:12)
[2018-03-11] MEDS: levoTHYROXINE 25mcg tablet PO SCH (08:12)
[2018-03-11] MEDS: furosemide 40mg tablet PO SCH (08:12)
[2018-03-11] MEDS: predniSONE 20 mg tablet PO SCH (08:12)
[2018-03-11] MEDS: lactose-reduced food (Ensure Enlive) - 237ml bottle PO SCH ×2 (08:12→13:48)
[2018-03-11] MEDS: lactobacillus rhamnosus 10,000 MMU CELLS/CAPSULE PO SCH (08:12)
[2018-03-11] MEDS: potassium Cl oral solution 20 MEQ/15 ML PO PRN (08:13)
[2018-03-11] MEDS: azithromycin 250mg tablet PO SCH (08:13)
--- NOTE | 2018-03-11 09:47 | NUR ---
SS responded to page from as family member requesting information & resources to facilitate financial POA for pt. SS met w/family member informed him that the hospital does not provide assistance w/this matter, provided family member w/info re [facility].
[2018-03-11] MEDS: STIOLTO RESPIMAT IH SCH (10:23)
[2018-03-11 11:00] VITALS: BP 116/81
--- NOTE | 2018-03-11 14:45 | NUR ---
Reassessment: Pt PO intake continues w/ 25% avg. Ensure live intake is 50-75% likely meeting nutritional needs. Pt documented w/ Sander of 12 w/ noted left pressure ulcer. Pt is A/O x 2 and noted to be confused. Protein ed not appropriate at this time and pt already receiving ONS providing additional protein. Pt will be transferred to [facility] at 15:00 per pillowcase folder note. LBM 03/07. Will continue to follow. Recommend: 1. Continue mechanical soft/ground diet with thin liquid per EVENT PROMOTIONS COORDINATOR recs 2. Ensure Enlive TIDWM 3. Monitor change in code status 4. Routine bowel care 5. Wt per rx Addendum: 03/11/18 at [address] Amended: Links added. Addendum: 03/11/18 at [address] I have reviewed and agree with note by Kosher Dietary Service Manager. Gabbi Cardozo RD
== END 2018-03-11 15:30 | DRG 208 ==
LOC: ER 23:49 → ED HOLD 02-23 03:05 → EDBEDREQ 02-23 03:25 → PCU 3S 02-23 04:34 → CICU 2S 02-24 16:30 → PCU 3S 03-03 14:45
PROVIDERS: ADMIT Internal Medicine; ATTEND Internal Medicine Critical Care Medicine
PROC: 5A1945Z Respiratory Ventilation, 24-96 Consecutive Hours (ICD-10-PCS; principal; 2018-02-24)
DX: J96.00 Acute respiratory failure, unspecified whether with hypoxia or hypercapnia (principal); I21.A1 Myocardial infarction type 2; R65.11 Systemic inflammatory response syndrome (SIRS) of non-infectious origin with acute organ dysfunction; E43 Unspecified severe protein-calorie malnutrition; J18.9 Pneumonia, unspecified organism; J44.1 Chronic obstructive pulmonary disease with (acute) exacerbation; R41.0 Disorientation, unspecified
CPT/HCPCS: 36415; 36573; 36600; 71045; 76937; 80048; 80053; 82803; 82948; 83605; 83735; 83880; 84100; 84132; 84134; 84443; 84484; 85018; 85025; 85610; 85730; 87040; 87070; 87502; 87503; 92616; 93005; 93308; 94002; 94003; 94640; 94660; 94760; 96361; 96365; 96375; 97110; 97116; 97161; 97530; 99285; G0378; J0696; J1120; J1644; J1650; J1815; J1940; J1956; J2060; J2250; J2270; J2405; J2920; J2930; J3010; J3480; J3490; J7512; P9045

== ENCOUNTER 2018-09-28 09:00 | Outpatient (CLI) | payer MEDICARE ==
[~2018-09-28 09:00] MED LIST changes: -etomidate 2mg/ml inj. ONE
== END 2018-09-28 23:59 | disposition home or self-care (01) ==
LOC: RT 09:00
PROVIDERS: ATTEND Internal Medicine Critical Care Medicine
DX: J44.9 Chronic obstructive pulmonary disease, unspecified (principal); J96.10 Chronic respiratory failure, unspecified whether with hypoxia or hypercapnia
CPT/HCPCS: 94618

== ENCOUNTER 2020-12-07 06:50 | Inpatient (IN) | payer MEDICARE ==
[~2020-12-07] VITALS: Ht 162.6 cm; Wt 54.0 kg
[~2020-12-07 06:50] MED LIST changes: -ACET-1 PO; +ALBU1.256 NEB; -BUDE10.2 INH; +ESCI20TA39 PO; +FAMO20TA8 PO; +IPRA3AMP9 IH; -LACT1CAP26 PO; +LEVE10006 PO; -LEVO25TA2 PO; +LEVO25TA7 PO; -LORA1TAB PO; +LORA2TAB96 PO; +PHEN100C12 PO; -POTA10TA19 PO; +POTA20TA19 PO; +PRED20TA PO; -THEO200T22 PO; -TIOT4MIS5 INH; +VENL37.589 PO; -[UNRECOGNIZED DRUG - OTHER] PO
--- NOTE | 2020-12-07 07:37 | NUR ---
called Dipti Cuellar/JENI, made aware that patient refusing labs and refusing to be medicated(steroid),patient is alert and oriented x4, made aware she wants to be DNR and DNI, and that patient let RN start and IV, JENI then said she is receiving palliative care at home.JENI appreciative of care.
--- NOTE | 2020-12-07 07:42 | NUR ---
patient receiving duoneb at this time,call light within reach.
--- NOTE | 2020-12-07 08:40 | NUR ---
given warm blanket,call light within reach.
--- NOTE | 2020-12-07 09:00 | NUR ---
PATIENT REPOSITIONED AT THIS TIME.
[2020-12-07] MEDS ORDERED: dexamethasone sod phosphate 10mg/ml inj IM STA (09:55)
[2020-12-07] MEDS ORDERED: ipratropium/albuterol 3ml nebule NEB STA (09:55)
[2020-12-07] MEDS ORDERED: methylPREDNISolone sod succ 125mg/2ml vial IV ONE (10:30)
--- NOTE | 2020-12-07 11:28 | NUR ---
PATIENT CHANGED INTO A HOSPITAL GOWN,REPOSITIONED FOR COMFORT,CONVERSANT,CALLL LIGHT WTIHIN REACH.
--- NOTE | 2020-12-07 12:12 | NUR ---
Dr. Light at bedside.
--- NOTE | 2020-12-07 12:18 | NUR ---
Dipti called, told RN that is not capable of taking care of patient and that Dipti/JENI has scheduled meeting with palliative care team at 1230 today to come up with a plan.Dr. martínez spoke to JENI as well.
--- NOTE | 2020-12-07 13:40 | NUR ---
Spoke with JENI Resendez, concerned about patient returning home, states that patient does not want to be hospitalized, but feels it is unsafe to discharge patient home because spouse can not care for patient, patient is on services with [facility] for palliative care, explained that I would go assess patient to determine direction of care, assessed patient, A/O of 3, states that she does want to go home, asked several times if she wanted treatment, continues to say no, updated primary nurse
[2020-12-07] MEDS ORDERED: PRED20TA PO (14:10)
[2020-12-07] MEDS ORDERED: PHEN100C12 PO (14:10)
[2020-12-07] MEDS ORDERED: FAMO20TA8 PO (14:12)
[2020-12-07] MEDS ORDERED: LEVE10006 PO (14:12)
[2020-12-07] MEDS ORDERED: POTA-82 PO (14:15)
[2020-12-07] MEDS ORDERED: HYDROcodone/acetaminophen 5mg/325mg tablet PO PRN (14:35)
[2020-12-07] MEDS ORDERED: ondansetron/PF 4mg/2ml inj IV PRN (14:35)
[2020-12-07] MEDS ORDERED: LORazepam 1 MG tablet PO PRN (14:35)
[2020-12-07] MEDS ORDERED: potassium Cl 40MEQ/1/2NS 520ml 520 ML IV PRN ×2 (14:35)
[2020-12-07] MEDS ORDERED: ipratropium 0.5 MG/2.5ML nebule NEB PRN (14:35)
[2020-12-07] MEDS ORDERED: insulin Lispro (HumaLOG) vial - multi-dose SQ SCH (14:35)
[2020-12-07] MEDS ORDERED: magnesium 4gm in 100ml NS 100 ML IV PRN (14:35)
[2020-12-07] MEDS ORDERED: glucagon, human recombinant 1mg kit SUBCUT PRN (14:35)
[2020-12-07] MEDS ORDERED: potassium Cl 20 mEq SR tablet PO PRN ×2 (14:35)
[2020-12-07] MEDS ORDERED: magnesium 2GM in 50ml NS 50 ML IV PRN (14:35)
[2020-12-07] MEDS ORDERED: acetaminophen 325mg tablet PO PRN ×2 (14:35)
[2020-12-07] MEDS ORDERED: dextrose ORAL solution 15 GM/59 ML bottle PO PRN ×2 (14:35)
[2020-12-07] MEDS ORDERED: magnesium Cl slow-release 64mg tablet PO PRN (14:35)
[2020-12-07] MEDS: normal saline 1000ml 1,000 ML IV SCH (14:35)
[2020-12-07] MEDS ORDERED: morphine 2 MG/ML inj. syringe IV PRN (14:35)
[2020-12-07] MEDS ORDERED: dextrose 50%-water 50ml dispensing syringe IV PRN ×2 (14:35)
[2020-12-07] MEDS ORDERED: MESSAGE TO PHARMACY PO ONE (14:35)
--- NOTE | 2020-12-07 14:38 | NUR ---
patient repositioned,covid swab collected. call light within reach.
--- NOTE | 2020-12-07 14:44 | NUR ---
Updated Dipti NGO, explained that patient is A/O of 3 and that patient does not want to be hospitalized and wants to go home, patient is refusing all treatment in ER, if patient does not want treatment, then patient needs to be discharged, discussed correction care with patient, patient declined and can not force patient to go to [facility], offered community resources of private caregivers, states will come and pick patient up if discharged
[2020-12-07 15:12] LABS: BASOPHILS # (AUTO) 0.1 X10'3 (0-0.2); BASOPHILS % (AUTO) 0.7 % (0-1); EOSINOPHILS % (AUTO) 0.1 % (0-6); HEMOGLOBIN 12.8 g/dl (12.0-16.0); LYMPHOCYTES # (AUTO) 0.2 X10'3 (1.1-4.8); LYMPHOCYTES % (AUTO) 1.8 % (21-51); MEAN CORPUSCULAR HEMOGLOBIN 30.6 PG (27.0-31.0); MEAN CORPUSCULAR HGB CONC 33.6 g/dL (33.0-36.5); MEAN CORPUSCULAR VOLUME 91.1 FL (78-98); MEAN PLATELET VOLUME 7.6 FL (7.4-10.4); MONOCYTES # (AUTO) 0.2 X10'3 (0-0.9); MONOCYTES % (AUTO) 1.8 % (2-12); NEUTROPHILS # (AUTO) 10.3 X10'3 (1.8-7.7); NEUTROPHILS % (AUTO) 95.6 % (42-75); PLATELET COUNT 330 X10'3 (140-440); RED BLOOD COUNT 4.17 X10'6 (4.20-5.60); RED CELL DISTRIBUTION WIDTH 14.4 % (11.5-14.5); WHITE BLOOD COUNT 10.7 X10'3 (4.5-11.0)
[2020-12-07 15:25] LABS: ALBUMIN 3.6 G/DL (3.4-5.0); ANION GAP 6 (8-16); BLOOD UREA NITROGEN 14 MG/DL (7-18); BUN/CREATININE RATIO 18.9 (6.6-38.0); CALCIUM 9.2 MG/DL (8.5-10.1); CHLORIDE 89 MMOL/L (99-107); CREATININE 0.74 MG/DL (0.40-0.90); GLUCOSE 164 MG/DL (70-104); POTASSIUM 3.7 MMOL/L (3.5-5.1); SODIUM 136 MMOL/L (135-145); eGFR 77 ML/MIN
[2020-12-07 15:42] LABS: TOTAL CARBON DIOXIDE 40.6 MMOL/L (24-32)
[2020-12-07 16:05] LABS: HEMOGLOBIN A1C 5.3 % (4.5-6.2)
[2020-12-07] MEDS: CefTRIAXone 2gm/D5W 50ml BAG 50 ML IV SCH (17:47)
[2020-12-07] MEDS: albuterol 2.5 MG/3 ML nebule NEB SCH ×2 (18:54→23:46)
[2020-12-07] MEDS: phenytoin sod ER 100mg capsule PO SCH (20:14)
[2020-12-07] MEDS: levetiracetam 250mg tablet PO SCH (20:16)
[2020-12-07] MEDS: methylPREDNISolone sod succ 125mg/2ml vial IV SCH (20:18)
[2020-12-07] MEDS: heparin, porcine 5000 units/ml vial SQ SCH (20:18)
[2020-12-07] MEDS: K and/or MAG REPLACEMENT MC SCH (20:19)
[2020-12-07] MEDS: insulin glargine (Lantus) pen - multi-dose SQ SCH (20:57)
[2020-12-07 21:50] VITALS: BP 121/63
[2020-12-07 22:00] VITALS: BP 96/60
[2020-12-08 02:00] VITALS: BP 98/54
[2020-12-08] MEDS: albuterol 2.5 MG/3 ML nebule NEB SCH ×5 (03:29→23:24)
[2020-12-08 06:00] VITALS: BP 116/68
--- NOTE | 2020-12-08 06:26 | NUR ---
Problems reprioritized. Patient report given, questions answered & plan of care reviewed with regino Arreguin.
--- NOTE | 2020-12-08 06:32 | NUR ---
Patient in room PCU 3028. I have received report from GERARDO DURÁN and had the opportunity to ask questions and assume patient care.
[2020-12-08 06:51] LABS: BASOPHILS % (AUTO) 0.2 % (0-1); EOSINOPHILS # (AUTO) 0.1 X10'3 (0-0.9); EOSINOPHILS % (AUTO) 0.7 % (0-6); HEMATOCRIT 34.5 % (35.0-45.0); HEMOGLOBIN 11.5 g/dl (12.0-16.0); LYMPHOCYTES # (AUTO) 0.4 X10'3 (1.1-4.8); MEAN CORPUSCULAR HEMOGLOBIN 30.3 PG (27.0-31.0); MEAN CORPUSCULAR HGB CONC 33.3 g/dL (33.0-36.5); MEAN PLATELET VOLUME 8.1 FL (7.4-10.4); MONOCYTES # (AUTO) 1.1 X10'3 (0-0.9); MONOCYTES % (AUTO) 6.1 % (2-12); NEUTROPHILS # (AUTO) 16.4 X10'3 (1.8-7.7); PLATELET COUNT 318 X10'3 (140-440); RED BLOOD COUNT 3.79 X10'6 (4.20-5.60); RED CELL DISTRIBUTION WIDTH 14.3 % (11.5-14.5)
[2020-12-08 07:10] LABS: ALANINE AMINOTRANSFERASE 119 U/L (12-78); ALBUMIN/GLOBULIN RATIO 0.9 (1.1-1.5); ALKALINE PHOSPHATASE 76 IU/L (46-116); ANION GAP 7 (8-16); ASPARTATE AMINO TRANSFERASE 55 U/L (10-37); BILIRUBIN,TOTAL 0.3 MG/DL (0.1-1.0); BLOOD UREA NITROGEN 15 MG/DL (7-18); BUN/CREATININE RATIO 23.4 (6.6-38.0); CALCIUM 8.7 MG/DL (8.5-10.1); CHLORIDE 90 MMOL/L (99-107); CREATININE 0.64 MG/DL (0.40-0.90); GLUCOSE 86 MG/DL (70-104); MAGNESIUM 1.6 MG/DL (1.5-2.4); POTASSIUM 3.4 MMOL/L (3.5-5.1); SODIUM 137 MMOL/L (135-145); TOTAL PROTEIN 6.2 G/DL (6.4-8.2); eGFR > 90 ML/MIN
[2020-12-08 07:12] LABS: TOTAL CARBON DIOXIDE 40.1 MMOL/L (24-32)
[2020-12-08] MEDS: K and/or MAG REPLACEMENT MC SCH ×2 (08:00→20:00)
[2020-12-08] MEDS: methylPREDNISolone sod succ 125mg/2ml vial IV SCH ×2 (08:12→21:01)
[2020-12-08] MEDS: heparin, porcine 5000 units/ml vial SQ SCH ×2 (08:12→21:06)
[2020-12-08] MEDS: levoTHYROXINE 25mcg tablet PO SCH (08:12)
[2020-12-08] MEDS: venlafaxine XR 37.5mg cap (Q24H) PO SCH (08:12)
[2020-12-08] MEDS: famotidine 20mg tablet PO SCH (08:13)
[2020-12-08] MEDS: levetiracetam 250mg tablet PO SCH ×2 (08:13→21:05)
[2020-12-08] MEDS: ESCITALOPRAM OXALATE 5 MG TABLET PO SCH (08:14)
[2020-12-08] MEDS: normal saline 1000ml 1,000 ML IV SCH (10:35)
[2020-12-08 11:00] VITALS: BP 105/58
--- NOTE | 2020-12-08 11:19 | NUR ---
RT PAGED: [id number] STAT ABG PLEASE. ORDER PLACED. THANKS [id number]
[2020-12-08 11:58] LABS: ABG BASE EXCESS 13.4 mmol/L (-2.0-2.0); ABG HCO3 40.2 mmol/L (22.0-26.0); ABG OXYGEN SATURATION 97.7 % (94-97); ABG PCO2 (T) 62.5 mmHg (32.0-45.0); ABG PO2 (T) 111.3 mmHg (75.0-100.0); ALLEN'S TEST POSITIVE; FCOHb 0.3 % (0.0-3.9); FLOW 4 L/min; FMetHb 0.2 % (0.0-1.5); FO2Hb 97.2 % (94-97); TOTAL HEMOGLOBIN 11.9 G/dl (12.0-16.0)
--- NOTE | 2020-12-08 12:05 | NUR ---
DR. DELGADO PAGED: Flaquita Horton [id number]: [facility] RESULTS BACK. [id number]
[2020-12-08] MEDS: CefTRIAXone 2gm/D5W 50ml BAG 50 ML IV SCH (12:52)
[2020-12-08 15:00] VITALS: BP 101/58
--- NOTE | 2020-12-08 18:30 | NUR ---
Patient in room PCU 3028. I have received report from NANO DURÁN and had the opportunity to ask questions and assume patient care.
[2020-12-08 19:00] VITALS: BP 157/67
[2020-12-08] MEDS: insulin glargine (Lantus) pen - multi-dose SQ SCH (21:00)
[2020-12-08] MEDS: phenytoin sod ER 100mg capsule PO SCH (21:04)
[2020-12-08] MEDS: lactobacillus rhamnosus 10,000 MMU CELLS/CAPSULE PO SCH (21:05)
[2020-12-08 22:00] VITALS: BP 114/60
[2020-12-09 02:00] VITALS: BP 122/74
[2020-12-09] MEDS: albuterol 2.5 MG/3 ML nebule NEB SCH ×6 (03:57→23:27)
[2020-12-09] MEDS: normal saline 1000ml 1,000 ML IV SCH (05:52)
[2020-12-09 06:00] VITALS: BP 123/50
[2020-12-09 06:26] LABS: BASOPHILS % (AUTO) 0.3 % (0-1); EOSINOPHILS # (AUTO) 0.1 X10'3 (0-0.9); EOSINOPHILS % (AUTO) 0.9 % (0-6); HEMATOCRIT 30.9 % (35.0-45.0); HEMOGLOBIN 10.4 g/dl (12.0-16.0); LYMPHOCYTES # (AUTO) 0.4 X10'3 (1.1-4.8); LYMPHOCYTES % (AUTO) 3.4 % (21-51); MEAN CORPUSCULAR HEMOGLOBIN 30.8 PG (27.0-31.0); MEAN CORPUSCULAR HGB CONC 33.7 g/dL (33.0-36.5); MEAN CORPUSCULAR VOLUME 91.5 FL (78-98); MONOCYTES # (AUTO) 0.6 X10'3 (0-0.9); MONOCYTES % (AUTO) 5.3 % (2-12); NEUTROPHILS # (AUTO) 10.3 X10'3 (1.8-7.7); NEUTROPHILS % (AUTO) 90.1 % (42-75); PLATELET COUNT 293 X10'3 (140-440); RED BLOOD COUNT 3.37 X10'6 (4.20-5.60); RED CELL DISTRIBUTION WIDTH 14.5 % (11.5-14.5); WHITE BLOOD COUNT 11.4 X10'3 (4.5-11.0)
--- NOTE | 2020-12-09 06:30 | NUR ---
Problems reprioritized. Patient report given, questions answered & plan of care reviewed with NANO DURÁN.
[2020-12-09 06:34] LABS: ALANINE AMINOTRANSFERASE 89 U/L (12-78); ALBUMIN 2.6 G/DL (3.4-5.0); ALBUMIN/GLOBULIN RATIO 0.8 (1.1-1.5); ALKALINE PHOSPHATASE 69 IU/L (46-116); ANION GAP 3 (8-16); ASPARTATE AMINO TRANSFERASE 35 U/L (10-37); BILIRUBIN,TOTAL 0.2 MG/DL (0.1-1.0); BLOOD UREA NITROGEN 18 MG/DL (7-18); BUN/CREATININE RATIO 27.7 (6.6-38.0); CALCIUM 8.3 MG/DL (8.5-10.1); CHLORIDE 97 MMOL/L (99-107); CREATININE 0.65 MG/DL (0.40-0.90); GLUCOSE 102 MG/DL (70-104); MAGNESIUM 1.8 MG/DL (1.5-2.4); POTASSIUM 3.5 MMOL/L (3.5-5.1); SODIUM 140 MMOL/L (135-145); TOTAL PROTEIN 5.9 G/DL (6.4-8.2); eGFR 89 ML/MIN
[2020-12-09 06:37] LABS: TOTAL CARBON DIOXIDE 40.2 MMOL/L (24-32)
[2020-12-09] MEDS: K and/or MAG REPLACEMENT MC SCH ×2 (08:00→20:00)
[2020-12-09] MEDS: CefTRIAXone 2gm/D5W 50ml BAG 50 ML IV SCH (08:49)
[2020-12-09] MEDS: methylPREDNISolone sod succ 125mg/2ml vial IV SCH ×2 (08:50→20:37)
[2020-12-09] MEDS: heparin, porcine 5000 units/ml vial SQ SCH ×2 (08:51→20:38)
[2020-12-09] MEDS: venlafaxine XR 37.5mg cap (Q24H) PO SCH (08:52)
[2020-12-09] MEDS: ESCITALOPRAM OXALATE 5 MG TABLET PO SCH (08:52)
[2020-12-09] MEDS: lactobacillus rhamnosus 10,000 MMU CELLS/CAPSULE PO SCH ×2 (08:52→20:38)
[2020-12-09] MEDS: famotidine 20mg tablet PO SCH (08:52)
[2020-12-09] MEDS: levetiracetam 250mg tablet PO SCH ×2 (08:52→20:38)
[2020-12-09] MEDS: levoTHYROXINE 25mcg tablet PO SCH (08:52)
[2020-12-09 15:00] VITALS: BP 120/49
--- NOTE | 2020-12-09 18:39 | NUR ---
Problems reprioritized. Patient report given, questions answered & plan of care reviewed with HAMZAH DURÁN.
[2020-12-09 20:00] VITALS: BP 126/67
[2020-12-09] MEDS: phenytoin sod ER 100mg capsule PO SCH (20:37)
[2020-12-09] MEDS: insulin glargine (Lantus) pen - multi-dose SQ SCH (20:44)
[2020-12-10] VITALS (7 sets, daily range): BP systolic 120–142; BP diastolic 45–77
[2020-12-10] MEDS: normal saline 1000ml 1,000 ML IV SCH ×2 (03:18→22:35)
[2020-12-10] MEDS: albuterol 2.5 MG/3 ML nebule NEB SCH ×5 (03:30→19:53)
[2020-12-10 06:29] LABS: BASOPHILS % (AUTO) 0.3 % (0-1); EOSINOPHILS # (AUTO) 0.1 X10'3 (0-0.9); EOSINOPHILS % (AUTO) 0.5 % (0-6); HEMATOCRIT 32.4 % (35.0-45.0); HEMOGLOBIN 10.8 g/dl (12.0-16.0); LYMPHOCYTES # (AUTO) 0.6 X10'3 (1.1-4.8); LYMPHOCYTES % (AUTO) 4.2 % (21-51); MEAN CORPUSCULAR HEMOGLOBIN 30.7 PG (27.0-31.0); MEAN CORPUSCULAR HGB CONC 33.4 g/dL (33.0-36.5); MEAN CORPUSCULAR VOLUME 91.8 FL (78-98); MEAN PLATELET VOLUME 8.1 FL (7.4-10.4); MONOCYTES # (AUTO) 0.8 X10'3 (0-0.9); MONOCYTES % (AUTO) 5.8 % (2-12); NEUTROPHILS # (AUTO) 12.8 X10'3 (1.8-7.7); NEUTROPHILS % (AUTO) 89.2 % (42-75); PLATELET COUNT 275 X10'3 (140-440); RED BLOOD COUNT 3.53 X10'6 (4.20-5.60); RED CELL DISTRIBUTION WIDTH 14.8 % (11.5-14.5); WHITE BLOOD COUNT 14.4 X10'3 (4.5-11.0)
--- NOTE | 2020-12-10 06:35 | NUR ---
REPORT GIVEN TO PAT/LUIS ARMANDO
[2020-12-10 06:42] LABS: ALANINE AMINOTRANSFERASE 78 U/L (12-78); ALBUMIN 2.8 G/DL (3.4-5.0); ALBUMIN/GLOBULIN RATIO 0.8 (1.1-1.5); ALKALINE PHOSPHATASE 77 IU/L (46-116); ANION GAP 3 (8-16); ASPARTATE AMINO TRANSFERASE 24 U/L (10-37); BILIRUBIN,TOTAL 0.2 MG/DL (0.1-1.0); BLOOD UREA NITROGEN 15 MG/DL (7-18); BUN/CREATININE RATIO 18.3 (6.6-38.0); CALCIUM 8.6 MG/DL (8.5-10.1); CHLORIDE 99 MMOL/L (99-107); CREATININE 0.82 MG/DL (0.40-0.90); GLUCOSE 110 MG/DL (70-104); MAGNESIUM 1.7 MG/DL (1.5-2.4); POTASSIUM 3.7 MMOL/L (3.5-5.1); SODIUM 142 MMOL/L (135-145); TOTAL CARBON DIOXIDE 39.8 MMOL/L (24-32); TOTAL PROTEIN 6.2 G/DL (6.4-8.2); eGFR 68 ML/MIN
[2020-12-10] MEDS: K and/or MAG REPLACEMENT MC SCH ×2 (08:00→22:00)
[2020-12-10] MEDS: CefTRIAXone 2gm/D5W 50ml BAG 50 ML IV SCH (08:29)
[2020-12-10] MEDS: lactobacillus rhamnosus 10,000 MMU CELLS/CAPSULE PO SCH ×2 (08:30→20:25)
[2020-12-10] MEDS: methylPREDNISolone sod succ 125mg/2ml vial IV SCH ×2 (08:30→20:27)
[2020-12-10] MEDS: famotidine 20mg tablet PO SCH (08:31)
[2020-12-10] MEDS: ESCITALOPRAM OXALATE 5 MG TABLET PO SCH (08:31)
[2020-12-10] MEDS: heparin, porcine 5000 units/ml vial SQ SCH ×2 (08:31→20:26)
[2020-12-10] MEDS: levoTHYROXINE 25mcg tablet PO SCH (08:31)
[2020-12-10] MEDS: venlafaxine XR 37.5mg cap (Q24H) PO SCH (08:32)
[2020-12-10] MEDS: levetiracetam 250mg tablet PO SCH ×2 (08:32→20:25)
--- NOTE | 2020-12-10 18:34 | NUR ---
Problems reprioritized. Patient report given, questions answered & plan of care reviewed with CHARLEEN DURÁN.
[2020-12-10] MEDS: phenytoin sod ER 100mg capsule PO SCH (20:27)
[2020-12-10] MEDS: insulin glargine (Lantus) pen - multi-dose SQ SCH (21:00)
[2020-12-11] MEDS: albuterol 2.5 MG/3 ML nebule NEB SCH ×4 (00:02→13:20)
[2020-12-11 03:43] VITALS: BP 115/72
--- NOTE | 2020-12-11 05:13 | NUR ---
Pt slept well throughout the night, assisted to the bedside commode. Fall precaution in place, call light placed within reach with instruction to call for assistance. Pt voiced oiced no complaints. IV site unremarkable; fluid infusing well
[2020-12-11 06:00] VITALS: BP 124/76
[2020-12-11 06:02] LABS: BASOPHILS % (AUTO) 0.3 % (0-1); EOSINOPHILS # (AUTO) 0.1 X10'3 (0-0.9); HEMATOCRIT 30.2 % (35.0-45.0); HEMOGLOBIN 10.1 g/dl (12.0-16.0); LYMPHOCYTES # (AUTO) 0.6 X10'3 (1.1-4.8); LYMPHOCYTES % (AUTO) 6.5 % (21-51); MEAN CORPUSCULAR HGB CONC 33.5 g/dL (33.0-36.5); MEAN CORPUSCULAR VOLUME 92.3 FL (78-98); MEAN PLATELET VOLUME 8.4 FL (7.4-10.4); MONOCYTES # (AUTO) 0.5 X10'3 (0-0.9); MONOCYTES % (AUTO) 5.2 % (2-12); PLATELET COUNT 239 X10'3 (140-440); RED BLOOD COUNT 3.27 X10'6 (4.20-5.60); RED CELL DISTRIBUTION WIDTH 14.6 % (11.5-14.5); WHITE BLOOD COUNT 9.2 X10'3 (4.5-11.0)
[2020-12-11 06:17] LABS: ALANINE AMINOTRANSFERASE 65 U/L (12-78); ALBUMIN 2.5 G/DL (3.4-5.0); ALBUMIN/GLOBULIN RATIO 0.8 (1.1-1.5); ALKALINE PHOSPHATASE 67 IU/L (46-116); ANION GAP 3 (8-16); ASPARTATE AMINO TRANSFERASE 21 U/L (10-37); BILIRUBIN,TOTAL 0.2 MG/DL (0.1-1.0); BLOOD UREA NITROGEN 13 MG/DL (7-18); BUN/CREATININE RATIO 21.3 (6.6-38.0); CHLORIDE 100 MMOL/L (99-107); CREATININE 0.61 MG/DL (0.40-0.90); GLUCOSE 107 MG/DL (70-104); MAGNESIUM 1.6 MG/DL (1.5-2.4); POTASSIUM 3.4 MMOL/L (3.5-5.1); SODIUM 142 MMOL/L (135-145); TOTAL CARBON DIOXIDE 39.3 MMOL/L (24-32); TOTAL PROTEIN 5.5 G/DL (6.4-8.2); eGFR > 90 ML/MIN
[2020-12-11 06:36] LABS: CALCIUM 8.4 MG/DL (8.5-10.1)
[2020-12-11] MEDS: K and/or MAG REPLACEMENT MC SCH (08:00)
[2020-12-11] MEDS: lactobacillus rhamnosus 10,000 MMU CELLS/CAPSULE PO SCH (08:31)
[2020-12-11] MEDS: CefTRIAXone 2gm/D5W 50ml BAG 50 ML IV SCH (08:31)
[2020-12-11] MEDS: ESCITALOPRAM OXALATE 5 MG TABLET PO SCH (08:31)
[2020-12-11] MEDS: levetiracetam 250mg tablet PO SCH (08:31)
[2020-12-11] MEDS: methylPREDNISolone sod succ 125mg/2ml vial IV SCH (08:32)
[2020-12-11] MEDS: levoTHYROXINE 25mcg tablet PO SCH (08:32)
[2020-12-11] MEDS: heparin, porcine 5000 units/ml vial SQ SCH (08:32)
[2020-12-11] MEDS: famotidine 20mg tablet PO SCH (08:32)
[2020-12-11] MEDS: venlafaxine XR 37.5mg cap (Q24H) PO SCH (08:32)
--- NOTE | 2020-12-11 10:13 | NUR ---
Initial: Pt with end stage COPD admit for COPD exacerbation r/t an acute bronchitis. Pt with some component of encephalopathy per MD note. Noted pt documented as A/O x 3 with intermittent confusion per physical assessment. Pt currently on a CHO controlled diet and eating well with mostly 75% PO intake. TC to RN with recommendation for diet change to regular as pt with no PMH of DM with current A1c 5.3% (down from 6.0% in 2018 per EMR). BG levels well controlled throughout LOS while receiving steroids and on hyperglycemic protocol however insulin not being administered d/t not being needed per EMR. LBM 12/11. No nutrition intervention implemented at this time. Will continue to follow. Recommendations: 1) Advance to regular diet; A1c 5.3% on steroids with no PMH DM 2) Bowel care PRN 3) Scaled weight this admit; weekly scaled weights thereafter Addendum: 12/11/20 at [address] Amended: Links added.
--- NOTE | 2020-12-11 10:43 | NUR ---
Paged Dr. Macdonald PAGER ID: [phone] MESSAGE: PCU rm 28B Flaquita Perla, on carb controlled diet A1c is 5.3, morning BS 88 and no history of diabetes.. Can we please change to regular and discontinue blood sugar checks. Rosanna DURÁN [phone]
[2020-12-11 11:00] VITALS: BP 126/74
--- NOTE | 2020-12-11 14:21 | NUR ---
Patient awake and IV was taken out.
[2020-12-11 14:44] VITALS: BP 120/72
--- NOTE | 2020-12-11 14:45 | NUR ---
Gave report to Ania Huerta LVN at [facility] [phone]. Gave Head to toe assessment, reviewed VS and medications. Gave pickup time 3005. Also gave contact information to patient's DPOA and .
[2020-12-11 15:00] VITALS: BP 120/72
--- NOTE | 2020-12-11 16:20 | NUR ---
[facility] Staff, Karma is here to corn picker patient and take to [facility]. Gave all paperwork for transfer and report to [facility] Staff
[2020-12-12] MEDS ORDERED: PIOGLITAZONE PO SCH (08:00)
== END 2020-12-11 15:25 | DRG 190 ==
LOC: ER 06:50 → ED HOLD 14:39 → PCU 3S 21:42
PROVIDERS: ADMIT Internal Medicine; ATTEND Internal Medicine
DX: J44.1 Chronic obstructive pulmonary disease with (acute) exacerbation (principal); G93.41 Metabolic encephalopathy; J96.11 Chronic respiratory failure with hypoxia; E87.2 Acidosis; J44.0 Chronic obstructive pulmonary disease with (acute) lower respiratory infection; E11.9 Type 2 diabetes mellitus without complications; J20.9 Acute bronchitis, unspecified; E03.9 Hypothyroidism, unspecified; G89.29 Other chronic pain; Z20.822 Contact with and (suspected) exposure to COVID-19; E87.6 Hypokalemia; F32.A Depression, unspecified; G40.909 Epilepsy, unspecified, not intractable, without status epilepticus; I10 Essential (primary) hypertension; Z66 Do not resuscitate; Z79.899 Other long term (current) drug therapy
CPT/HCPCS: 36415; 36600; 71045; 80048; 80053; 80177; 80185; 82803; 82948; 83036; 83735; 83880; 85018; 85025; 87040; 87081; 87635; 93005; 94640; 94760; 96361; 96374; 97116; 97161; 97530; 99285; G0378; J0696; J1644; J1815; J2930; J7030